=== PATIENT | female | born 1990 | race Caucasian/White ===

== ENCOUNTER 2019-11-07 16:48 | Outpatient (CLI) | payer OTHER, SELFPAY ==
[2019-11-07 16:59] VITALS: BP 138/85; PULSE 74
[2019-11-07 17:00] VITALS: BP 160/86; PULSE 79
[2019-11-07 17:15] VITALS: BP 146/99; PULSE 83
[2019-11-07 17:26] LABS: Basophils Absolute Auto 0.1 K/mm3 (0.0-0.1); Basophils Percent Auto 0.4 % (0.2-1.2); Eosinophils Absolute Auto 0.3 K/mm3 (0-0.3); Eosinophils Percent Auto 2.8 % (0-4.4); Hematocrit 38.4 % (37.0-47.0); Hemoglobin 12.9 g/dL (12.0-15.0); Immature Granulocyte Absolute 0.04 K/mm3 (0.00-0.031); Immature Granulocyte Percent A 0.3 % (0-0.5); Lymphocytes Absolute Auto 2.22 K/mm3 (0.9-3.2); Mean Corpuscular HGB Conc 33.6 g/dl (32-36); Mean Corpuscular Hemoglobin 28.8 pg (26-34); Mean Corpuscular Volume 85.7 fl (80-100); Monocytes Absolute Auto 0.7 K/mm3 (0.1-0.6); Monocytes Percent Auto 6.2 % (2.6-8.5); Neutrophils Absolute Auto 8.3 K/mm3 (1.3-6.7); Neutrophils Percent Auto 71.3 % (45.5-73.1); Platelet Count Result 254 k/mm3 (150-375); Red Blood Count 4.48 M/mm3 (4.2-5.4); Red Cell Distribution Width 12.3 % (11.5-14.5); White Blood Count 11.7 K/mm3 (4.5-10.0)
[2019-11-07 17:30] VITALS: BP 128/77; PULSE 69
[2019-11-07 17:38] LABS: Alanine Aminotransferase 11 U/L (4-35); Albumin Level 3.8 g/dL (3.5-5.1); Alkaline Phosphatase 74 U/L (38-126); Aspartate Amino Transferase 16 U/L (14-36); Bilirubin,Total 0.3 mg/dL (0.2-1.3); Blood Urea Nitrogen 5 mg/dL (7-17); Calcium 8.9 mg/dL (8.4-10.2); Carbon Dioxide 22 mmol/L (22-30); Chloride 106 mmol/L (98-107); Estimated Glomerular Filt Rate > 60; Glucose 80 mg/dL (65-105); Potassium 3.6 mmol/L (3.4-5.0); Sodium 136 mmol/L (137-145); Uric Acid 3.5 mg/dL (2.5-7.5)
[2019-11-07 17:45] VITALS: BP 124/76; PULSE 71
== END 2019-11-07 17:52 | disposition home or self-care (01) ==
LOC: ANHOBOP 16:53 → ANHOBPP 17:26
PROVIDERS: PCP Family Medicine; Visit Provider Student in an Organized Health Care Education/Training Program
DX: O13.9 Gestational [pregnancy-induced] hypertension without significant proteinuria, unspecified trimester (principal); Z3A.00 Weeks of gestation of pregnancy not specified
CPT/HCPCS: 36415; 80053; 84550; 85025; 99199

== ENCOUNTER 2020-04-11 00:01 | Inpatient (IN) | payer OTHER, SELFPAY ==
[2020-04-11] VITALS (86 sets, daily range): BP systolic 57–168; BP diastolic 21–112; PULSE 64–102; TEMP 36–36.7; BMI 41.5
--- NOTE | 2020-04-11 00:28 | LDADM ---
This patient, Clara Daigle, was admitted to Labor/Delivery/Recovery 108 on 04/10/20 at 00:01. Plans for labor, pain management and were discussed with patient. Patient/family oriented to hospital policies and general routines including ID bracelet, bed and alarms, visiting hours, pain management, procedures, bathroom and other care routines, personal items, smoking policy, room service/diet and guest tray routines, security routines, and visiting hours. Patient/Family are encouraged to report perceived risks to care and to ask questions if they do not understand what they are told or what they should do. See OBIX for further documentation.
[2020-04-11 00:45] LABS: Basophils Absolute Auto 0.1 K/mm3 (0.0-0.1); Basophils Percent Auto 0.4 % (0.2-1.2); Eosinophils Absolute Auto 0.2 K/mm3 (0-0.3); Eosinophils Percent Auto 1.5 % (0-4.4); Hematocrit 38.7 % (37.0-47.0); Hemoglobin 12.9 g/dL (12.0-15.0); Immature Granulocyte Absolute 0.06 K/mm3 (0.00-0.031); Immature Granulocyte Percent A 0.5 % (0-0.5); Lymphocytes Absolute Auto 2.39 K/mm3 (0.9-3.2); Lymphocytes Percent Auto 18.8 % (18.3-44.2); Mean Corpuscular HGB Conc 33.3 g/dl (32-36); Mean Corpuscular Hemoglobin 28.5 pg (26-34); Mean Corpuscular Volume 85.4 fl (80-100); Mean Platelet Volume 10.7 fl (7.4-10.4); Monocytes Absolute Auto 0.9 K/mm3 (0.1-0.6); Monocytes Percent Auto 7.4 % (2.6-8.5); Neutrophils Absolute Auto 9.1 K/mm3 (1.3-6.7); Neutrophils Percent Auto 71.4 % (45.5-73.1); Platelet Count Result 243 k/mm3 (150-375); Red Blood Count 4.53 M/mm3 (4.2-5.4); Red Cell Distribution Width 13.7 % (11.5-14.5); White Blood Count 12.7 K/mm3 (4.5-10.0)
[2020-04-11] MEDS: miSOPROStol 25 MCG TABLET VAGINAL ×3 (01:02→09:18)
--- NOTE | 2020-04-11 07:23 | WPDHPUPDATE1 ---
History and Physical Update Update Date/Time: 04/11/20 07:23 29 yo at 39w0d who presents for IOL. has been complicated by CHTN on labetalol. She deneis any preeclamptic symptoms. She endorses good fm. She denies regular ctx or leakage of fluid. History and Physical has been reviewed, including an updated exam of the patient. There are NO changes in the patient's condition. Risks, benefits, and alternatives have been discussed and questions answered. Patient agrees to proceed with procedure. A/P 29 yo at 39w0d who presents for IOL admit to [facility] admission orders T cat 1 no ctx on toco plan for cervical ripening via cytotec will augment with pitocin s/p cytotec continuous FM continue to monitor BP
[2020-04-11 07:39] LABS: Rapid Plasma Reagin Non-Reactive (NonReactive)
--- NOTE | 2020-04-11 07:53 | WPDANESEPP ---
Anes - Eval Pre Procedure Procedure: labor epidural Date/Time: 04/11/20 07:53 Preop Diagnosis: pain with labor Pre Op Diagnosis: IOL Patient Data Age: 29 Gender: F Height: 5 ft 3 in Weight: 106.5 kg Last Vital Signs Temp 36.0 C L 04/11/20 07:30 Pulse 72 04/11/20 07:45 BP 121/67 04/11/20 07:45 Allergies Allergy/AdvReac Type Severity Reaction Status Date / Time No Known Allergies Allergy Verified 07/15/19 09:58 Home Medications Medication Instructions Recorded Confirmed Type PNV cmb#95-ferrous fumarate-FA 1 tablet PO DAILY 03/19/20 04/11/20 History [] ergocalciferol (vitamin D2) 1,250 mcg PO WEEKLY 03/19/20 04/11/20 History labetalol 200 mg PO Q12H 03/19/20 04/11/20 History Laboratory Tests 04/11/20 04/11/20 04/11/20 00:25 00:25 00:25 WBC 12.7 K/mm3 H K/mm3 (4.5-10.0) RBC 4.53 M/mm3 M/mm3 (4.2-5.4) Hgb 12.9 g/dL g/dL (12.0-15.0) Hct 38.7 % % (37.0-47.0) MCV 85.4 fl fl (80-100) MCH 28.5 pg pg (26-34) MCHC 33.3 g/dl g/dl (32-36) RDW 13.7 % % (11.5-14.5) Plt Count 243 k/mm3 k/mm3 (150-375) MPV 10.7 fl H fl (7.4-10.4) Immature Gran % (Auto) 0.5 % % (0-0.5) Neut % (Auto) 71.4 % % (45.5-73.1) Lymph % (Auto) 18.8 % % (18.3-44.2) [place] % (Auto) 7.4 % % (2.6-8.5) Eos % (Auto) 1.5 % % (0-4.4) Baso % (Auto) 0.4 % % (0.2-1.2) Lymph # (Auto) 2.39 K/mm3 K/mm3 (0.9-3.2) [place] # (Auto) 0.9 K/mm3 H K/mm3 (0.1-0.6) Eos # (Auto) 0.2 K/mm3 K/mm3 (0-0.3) Baso # (Auto) 0.1 K/mm3 K/mm3 (0.0-0.1) Abs Immat Gran (auto) 0.06 K/mm3 H K/mm3 (0.00-0.031) Absolute Neuts (auto) 9.1 K/mm3 H K/mm3 (1.3-6.7) Absolute Nucleated RBC 0.0 K/mm3 K/mm3 (0.0-0.012) Nucleated RBC % 0.0 % % (0.0-0.2) RPR Non-reactive (NonReactive) Blood Type A Positive Antibody Screen Negative Patient hx anesthesia problems: none Family hx anesthesia problems: none PMFSH Social History Social History Smoking status: Never smoker Second hand tobacco smoke exposure: No Alcohol intake: current Substance use: never Gender identity (if verbalized by the patient): Female Spiritual care concerns: No Exam Day of Procedure 04/11/20 07:53
[2020-04-11] MEDS: LABETALOL HCL 100 MG TABLET 200 MG PO ×2 (09:50→21:03)
[2020-04-11] MEDS: OXYTOCIN 30 UNITS/NS 500 ML 30 UNITS/500 ML BAG 6 UNITS IV CONT (13:49)
[2020-04-11] MEDS: LACTATED RINGERS 1,000 ML 125 ML IV CONT (13:49)
--- NOTE | 2020-04-11 15:00 | PM.OBPNLAB ---
Pain Control Date/time seen: 04/11/20 15:00 Pain control: tolerating well Pelvic Exam Dilation (cm): 1 Effacement (%): 50 station: -3 Amniotic membrane status: Intact Contractions Contraction frequency: 145 Status status: Category l Assessment and Plan Pitocin rate (mU/min): 14 Assessment: induction ongoing Plan: continuous present management
[2020-04-11] MEDS: DINOPROSTONE 10 MG VAG INSERT VAGINAL (20:18)
[2020-04-12] VITALS (176 sets, daily range): BP systolic 105–196; BP diastolic 46–180; PULSE 75–145; RESP 18; TEMP 36.3–38.1; O2SAT 87–100
[2020-04-12] MEDS: LACTATED RINGERS 1,000 ML 125 ML IV CONT ×2 (05:36→14:25)
[2020-04-12] MEDS: OXYTOCIN 30 UNITS/NS 500 ML 30 UNITS/500 ML BAG 6 UNITS IV CONT (05:37)
--- NOTE | 2020-04-12 05:47 | PM.OBPNVD ---
OB - PN: Subj Subjective Date/time seen: 04/12/20 05:47 Interval history: cx3/75/-1 arom light mec fhts ok gwet epidural OB - PN: Obj Data Labs CBC & Chem 7: 04/11/20 00:25 Labs: Laboratory Results - last 24 hr 04/11/20 00:25 RPR Non-reactive OB - PN A/P Time Spent With Patient Time: Total time spent is greater than 50% in coordination of care (as documented) at patient's floor/unit and/or counseling patient:
[2020-04-12] MEDS: LABETALOL HCL 100 MG TABLET 200 MG PO (09:24)
[2020-04-12] MEDS: ONDANSETRON INJ 4 MG/2 ML VIAL IV PUSH (11:38)
[2020-04-12] MEDS: SODIUM CHLORIDE 0.9% IV 300 ML 180 ML I-UTERINE (11:45)
--- NOTE | 2020-04-12 11:46 | PM.OBPNVD ---
OB - PN: Subj Subjective Date/time seen: 04/12/20 11:46 Interval history: cx 6.5 by rn exam variables seen./iupc and amnioinfusion started epidural working OB - PN: Obj Data Labs CBC & Chem 7: 04/11/20 00:25 OB - PN A/P Time Spent With Patient Time: Total time spent is greater than 50% in coordination of care (as documented) at patient's floor/unit and/or counseling patient:
[2020-04-12] MEDS: SODIUM CHLORIDE 0.9% IV 1,000 ML 150 ML I-UTERINE (12:10)
[2020-04-12] MEDS: AMPICILLIN 2 GM/NS 100 ML 2 GM/100 ML BAG IVPB (14:58)
--- NOTE | 2020-04-12 16:22 | PM.OBPRVD ---
OB - Delivery Note Procedure Delivery date: 04/12/20 Procedure: mil/ Intrapartal events: None Induction method: per misoprostol protocol Delivery augmentation: pitocin Delivery monitor: external FHT Route of delivery: Episiotomy description: None Laceration description: None Specimen: No Estimated blood loss (mL): 57 Anesthesia type: Epidural Disposition: floor [facility] Date of : 04/12/20 Time of : 16:07 Weeks of gestation at delivery: 39 gender: Male Weight (pounds): 7 Weight (ounces): 4 presentation: vertex position: Right Occiput Anterior Placenta delivery description: Spontaneous cord vessel description: 3 Vessels, Nuchal Cord, True Knot and Around Body x1 score one minute: 8 score five minutes: 9
[2020-04-12] MEDS: OXYTOCIN 30 UNITS/NS 500 ML 30 UNITS/500 ML BAG 125 UNITS IV CONT (17:13)
--- NOTE | 2020-04-12 22:15 | OBPPTRN ---
Patient transferred to post room # 281 via wheelchair on 04/12/20 at 1933. Support person present. Oriented to unit, room, information board, rooming in, admission packet and security measures. remains in level 2 nursery at this time. Patient verbalizes understanding.
[2020-04-12] MEDS: IBUPROFEN 600 MG TABLET PO (23:04)
[2020-04-12] MEDS: BENZOCAINE 20% AER SPR (*SP) 56 GM CAN 1 SPRAY TOPICAL (23:04)
[2020-04-12] MEDS: ACETAMINOPHEN 325 MG TABLET 650 MG PO (23:05)
[2020-04-13 05:10] LABS: Hematocrit 35.3 % (37.0-47.0); Hemoglobin 11.7 g/dL (12.0-15.0)
--- NOTE | 2020-04-13 07:07 | P.PNOB_ITS ---
OB - PN: Subj Subjective Date/time seen: 04/13/20 07:07 Interval history: cx 6.5 by rn exam variables seen./iupc and amnioinfusion started epidural working Patient comments: no complaints and pain well controlled baby status: doing well and nursing well OB - PN: Obj Data Labs CBC & Chem 7: 04/13/20 04:41 Labs: Laboratory Results - last 24 hr 04/13/20 04:41 Hgb 11.7 L Hct 35.3 L OB - PN A/P Plan day: 1 Plan: routine care Time Spent With Patient Time: Total time spent is greater than 50% in coordination of care (as docum ented) at patient's floor/unit and/or counseling patient: Time with patient: less than 15 minutes Review of Systems Review of Systems: All systems reviewed & are unremarkable except as noted in HPI and below Exam Const: General: no acute distress Eyes: General: appearance normal, both eyes and all related structures Neck: Neck: supple and no JVD Thyroid: thyroid normal Resp: Effort & Inspection: normal respiratory effort Auscultation: clear to auscultation bilaterally Cardio: Rate: regular rate Rhythm: regular rhythm GI: Inspection: non-distended GI Palp: Yes Soft to palpation, No Tenderness to palpation present (GI) and No Guarding due to palpation present (GI) Auscultation: normal bowel sounds : General: Yes bladder normal to palpation External Female Exam: normal external appearance Speculum Exam - Vagina: normal vaginal discharge and No vaginal bleeding Speculum Exam - Cervix: nontender Bimanual exam- vagina & uterus: bladder normal to palpation and No Cervical tenderness present OB/external & speculum: No vaginal bleeding Skin: General skin exam: no rashes or lesions noted Extrem: General: normal to inspection and no edema Psych: Mental Status: mental status grossly normal Affect: normal affect
[2020-04-13 08:15] VITALS: BP 134/80; PULSE 81; RESP 18; TEMP 36
[2020-04-13] MEDS: MULTIVIT/MIN/PREN/FOL AC/IRON TABLET 1 TAB PO (09:01)
[2020-04-13] MEDS: IBUPROFEN 600 MG TABLET PO ×2 (09:01→17:21)
--- NOTE | 2020-04-13 09:09 | WPDANLDPN2 ---
Anes-Prog Note L&D Date/Time: 04/13/20 09:09 Comfortable throughout: labor and delivery Neuraxial method: epidural Neuro status: Neuro function grossly intact. Cardiovascular status: normal Respiratory status: normal Airway patency: baseline Mental status: baseline Post-Op hydration status: normal Vital Signs: Last Vital Signs Temp 36.3 C L 04/12/20 20:00 Pulse 95 04/12/20 21:30 Resp 18 04/12/20 21:30 BP 138/87 04/12/20 21:30 Pulse Ox 99 04/12/20 21:30 I/O: Intake & Output 04/12/20 04/13/20 04/13/20 23:59 07:59 15:59 Intake Total 500 Balance 500 Post-procedural complaints: none Patient feedback: Patient satisfied with anesthetic care.
--- NOTE | 2020-04-13 11:10 | PC.NURSE ---
Mother called out for assist with feeding. Consulted with patient, mother reports she has some tenderness with feedings and needs assist with positioning to latch. Reviewed feeding cues, frequencies, duration of feedings, feeding elimination flow sheet, and signs of adequate intake. Demonstrated stimulation techniques to wake infant for feeding. Assisted with infant to breast. Reviewed positioning/alignment in cross cradle, holding breast in U hold and guided asymmetrical latch on. Discussed rational for each. After several attempts, was able to latch correctly. Infant does not want to open widely for deep latch. Infant nursed eagerly, with steady draws and frequent swallowing noted. Reviewed signs of a correct latch, effective nursing and suck swallow ratio. Infant was able to maintain latch without discomfort to mother. Reviewed signs of a correct latch, effective nursing and suck swallow ratio. Nipple care reviewed. Instructed mother to call out for RN assistance if she is unable to latch infant for feeding or she has discomfort with nursing. Instructed feeding should be initiated three hours from start of last feeding or if feeding cues are noted before. Mother voiced understanding of information shared. Advised to stimulate to keep infant awake and nursing effectively for increased intake and assist with maintaining deep latch. Demonstrated how to adjust latch more deeply while feeding. Instructed mother to call out for RN assistance if she is unable to latch for feeding or she has discomfort with nursing. Instructed feeding should be initiated three hours from start of last feeding or if feeding cues are noted before. Mother voiced understanding of information shared. Mother is feeding as required and waking to feed if needed. is currently meeting outcomes for weight, output, jaundice and feeding frequencies. Mother states she feels confident to continue effective at home. Reviewed transition to breast milk, signs of adequate intake, and engorgement/relief. Instructed to call ICP if intake/output less than required. Reviewed regular medications mother is taking. Information provided per Page. Reviewed community resources on the [email or web address] website and in the Mom/Baby guide. Information on outpatient services provided. Mother has no further questions at this time.
[2020-04-13] MEDS: ACETAMINOPHEN 325 MG TABLET 650 MG PO (17:20)
[2020-04-13 20:00] VITALS: BP 132/72; PULSE 77; RESP 18; TEMP 36.7; O2SAT 98
--- NOTE | 2020-04-14 07:29 | PM.DS ---
DS: Admitting Diagnosis Admitting Diagnosis Admitting Diagnosis: IOL DS: Summary Time Spent with Patient Time attestation: Total time spent providing and/or coordinating discharge services: Exam Const: General: no acute distress Eyes: General: appearance normal, both eyes and all related structures Neck: Neck: supple and no JVD Thyroid: thyroid normal Resp: Effort & Inspection: normal respiratory effort Auscultation: clear to auscultation bilaterally Cardio: Rate: regular rate Rhythm: regular rhythm GI: Inspection: non-distended GI Palp: Yes Soft to palpation, No Tenderness to palpation present (GI) and No Guarding due to palpation present (GI) Auscultation: normal bowel sounds : General: Yes bladder normal to palpation External Female Exam: normal external appearance Speculum Exam - Vagina: normal vaginal discharge and No vaginal bleeding Speculum Exam - Cervix: nontender Bimanual exam- vagina & uterus: bladder normal to palpation and No Cervical tenderness present OB/external & speculum: No vaginal bleeding Skin: General skin exam: no rashes or lesions noted Extrem: General: normal to inspection and no edema Psych: Mental Status: mental status grossly normal Affect: normal affect DS: Data Data Completed and Pending Pending studies at discharge: Pending at discharge 04/12/20 16:14 Surgical [PTH] Routine Discharge Plan Discharge Attending physician on discharge: Asad Rowland Discharging Clinician: Edwin Jiang Patient Disposition: Home, Self-Care Activity: may shower, no straining and pelvic rest Diet: heart healthy Patient Instructions: Antibiotic Form Stand Alone Forms: General Discharge Information Follow-up/Referrals: Asad Rowland MD [Physician] - Discharge Medications: Continued ergocalciferol (vitamin D2) 1,250 mcg (50,000 unit) capsule 1,250 mcg PO WEEKLY RF: 0 labetalol 200 mg Tablet 200 mg PO Q12H RF: 0 PNV cmb#95-ferrous fumarate-FA [] 28 mg iron- 800 mcg Tablet 1 tablet PO DAILY RF: 0 Date of admission: 04/11/20 00:01 Primary Care Provider: Tatyana Jacobsen Admitting Provider: Asad Rowland Attending physician on admission: Asad Rowland
--- NOTE | 2020-04-14 07:30 | PM.OBPNVD ---
OB - PN: Subj Subjective Date/time seen: 04/14/20 07:30 Interval history: cx 6.5 by rn exam variables seen./iupc and amnioinfusion started epidural working Patient comments: no complaints and pain well controlled baby status: doing well and nursing well OB - PN: Obj Data Labs CBC & Chem 7: 04/13/20 04:41 OB - PN A/P Time Spent With Patient Time: Total time spent is greater than 50% in coordination of care (as documented) at patient's floor/unit and/or counseling patient: Review of Systems Review of Systems: All systems reviewed & are unremarkable except as noted in HPI and below Exam Const: General: no acute distress Eyes: General: appearance normal, both eyes and all related structures Neck: Neck: supple and no JVD Thyroid: thyroid normal Resp: Effort & Inspection: normal respiratory effort Auscultation: clear to auscultation bilaterally Cardio: Rate: regular rate Rhythm: regular rhythm GI: Inspection: non-distended GI Palp: Yes Soft to palpation, No Tenderness to palpation present (GI) and No Guarding due to palpation present (GI) Auscultation: normal bowel sounds : General: Yes bladder normal to palpation External Female Exam: normal external appearance Speculum Exam - Vagina: normal vaginal discharge and No vaginal bleeding Speculum Exam - Cervix: nontender Bimanual exam- vagina & uterus: bladder normal to palpation and No Cervical tenderness present OB/external & speculum: No vaginal bleeding Skin: General skin exam: no rashes or lesions noted Extrem: General: normal to inspection and no edema Psych: Mental Status: mental status grossly normal Affect: normal affect
[2020-04-14 09:45] VITALS: BP 134/84; PULSE 86; RESP 18; TEMP 36.4; O2SAT 97
[2020-04-14] MEDS: DOCUSATE SODIUM 100 MG CAPSULE PO (09:46)
[2020-04-14] MEDS: IBUPROFEN 600 MG TABLET PO (09:46)
[2020-04-14] MEDS: MULTIVIT/MIN/PREN/FOL AC/IRON TABLET 1 TAB PO (09:46)
--- NOTE | 2020-04-14 14:27 | PC.NURSE ---
1300 Parents were given the discharge papers for mother and baby and they state they have read through them. questions addressed. Mother signed discharge papers stating understanding for herself and her baby.
[2020-04-16 09:20] VITALS: BP 144/83; PULSE 70; RESP 20; TEMP 36.7; O2SAT 100
== END 2020-04-14 13:39 | disposition home or self-care (01) | DRG 806 ==
LOC: ANHLDR 19:01 → ANHOB2 04-14 07:30 → ANHLDR 04-16 11:51 → ANHOB2 04-16 11:51
PROVIDERS: Admitting Provider Student in an Organized Health Care Education/Training Program; PCP Family Medicine; Visit Provider Obstetrics & Gynecology
DX: O10.92 Unspecified pre-existing hypertension complicating childbirth (principal); O75.2 Pyrexia during labor, not elsewhere classified; Z37.0 Single live birth; Z3A.39 39 weeks gestation of pregnancy; O36.8330 Maternal care for abnormalities of the fetal heart rate or rhythm, third trimester, not applicable or unspecified; O77.0 Labor and delivery complicated by meconium in amniotic fluid; O69.2XX0 Labor and delivery complicated by other cord entanglement, with compression, not applicable or unspecified
CPT/HCPCS: 36415; 85014; 85018; 85025; 86592; 86850; 86900; 86901; 88307; A9270; J0131; J0290; J2405; J2590; J2795; J3010; J7030; J7120

== ENCOUNTER 2020-08-07 11:37 | Outpatient (CLI) | payer OTHER, SELFPAY ==
--- NOTE | ~2020-08-07 | XR_ITS ---
XR lumbar spine 2-3V 08/07/2020 12:04 Indication: Low back pain with radiculopathy Procedure: 3 views lumbar spine Comparison: 06/23/2011 Findings: Normal lumbar alignment. Vertebral body heights are maintained. No significant disc narrowi ng. No fracture, subluxation or dislocation. Pedicles intact. Sacral foramen are symmetric. Impression: 1: No significant abnormality of the lumbar spine. Reviewed, dictated and finalized at location A. [facility] Impression: 1: No significant abnormality of the lumbar spine.
== END 2020-08-07 11:38 | disposition home or self-care (01) ==
LOC: ANHIMG 11:44
PROVIDERS: PCP Family Medicine; Visit Provider Physician Assistant
DX: M54.5 Low back pain (principal)
CPT/HCPCS: 72100

== ENCOUNTER 2022-11-21 11:17 | Emergency (ER) | payer OTHER, SELFPAY ==
--- NOTE | 2022-11-21 11:35 | ED.BACK ---
HPI - Back Pain/Injury General Chief Complaint: Back Pain/Injury Stated Complaint: spine pain Time Seen by Provider: 11/21/22 11:41 Source: patient, RN notes reviewed and old records reviewed Mode of arrival: ambulatory Limitations: no limitations History of Present Illness HPI Narrative: 32-year-old female presents to the [facility] with complaints of upper back pain. Patient states the pain is worse with movement. Worse when swallowing. Patient denies any injury. Unable to reproduce pain. No numbness or tingling in extremities. Walks with a normal gait. No saddle anesthesia. No loss retention of bowel or bladder. Has a history of fibromyalgia Related Data Allergies Allergy/AdvReac Type Severity Reaction Status Date / Time No Known Allergies Allergy Verified 11/21/22 11:34 Review of Systems Review of Systems: All systems reviewed & are unremarkable except as noted in HPI and below Constitutional: Constitutional: Reports no additional constitutional complaints Eyes: Eyes: Reports no additional eye complaints ENT: Reports system reviewed and no additional complaints, except as documented Cardiovascular: Cardiovascular: Reports no additional cardiovascular complaints, Denies chest pain and Denies dyspnea Respiratory: Respiratory: Reports no additional respiratory complaints, Denies chest congestion, Denies cough and Denies dyspnea Gastrointestinal: Gastrointestinal: Reports no additional gastrointestinal complaints, Denies abdominal pain, Denies nausea and Denies vomiting Musculoskeletal: Musculoskeletal: Reports as per HPI and Reports back pain Integumentary/Breasts: Skin/Breast: Reports system reviewed and no additional complaints, except as docu Neurologic: Reports system reviewed and no additional complaints, except as documented Psychiatric: Psychiatric: Reports no additional psychiatric complaints Allergic/Immunologic: Allergic/Immunologic: Reports no additional allergic/immunologic complaints [facility] Past Medical History Medical History Bicornate uterus Fibromyalgia Migraine Migraine NOS/intractable Sprain of unspecified site of sacroiliac region Family History Family History Grandparent Family history of malignant neoplasm of breast Social History Social History Smoking status: Never smoker Second hand tobacco smoke exposure: No Alcohol intake: current Substance use: never Gender identity (if verbalized by the patient): Female Spiritual care concerns: No Comments At the time of my signature, I reviewed and agree with the nursing past medical, surgical, social, and family history. There is no relevant family history pertinent to the patient complaint. Exam Const: General: cooperative, healthy appearing, comfortable, no acute distress, well developed, alert and well nourished Nutritional Appearance: well nourished and obese Orientation/consciousness: patient oriented x3 Limitations: no limitations HENMT: Head: normal to inspection Ears: hearing grossly normal bilaterally and external ears normal Face/Nose/Sinus: Normal external nose present, Normal nares present, Normal nasal mucous membranes and turbinates present and normal facial exam Face and sinus: normal facial exam Mouth: Yes Normal oral and palatal mucosa present, Yes lip normal and Yes moist mucous membranes Throat: posterior oropharynx normal and uvula midline Eyes: General: appearance normal, both eyes and all related structures Alignment and Position: alignment normal Periorbital: periorbital findings normal Conjunctivae: conjunctivae normal Pupils: Equal, round and reactive pupils present EOM: EOMs intact bilaterally Neck: Neck: normal visual inspection, full ROM, no lymphadenopathy and no meningeal signs Chest: Chest palpation & inspection: normal ins
[2022-11-21 11:43] VITALS: BP 150/114; PULSE 66; RESP 16; TEMP 37.1; O2SAT 99
== END 2022-11-21 11:58 | disposition home or self-care (01) ==
PROVIDERS: Emergency Provider Nurse Practitioner; PCP Family Medicine
DX: M54.6 Pain in thoracic spine (principal); M79.7 Fibromyalgia
CPT/HCPCS: 99213; G0463

== ENCOUNTER 2023-07-23 10:01 | Outpatient (CLI) | payer OTHER, SELFPAY ==
[2023-07-23 15:00] LABS: Basophils Absolute Auto 0.1 K/mm3 (0.0-0.1); Basophils Percent Auto 0.7 % (0.2-1.2); Eosinophils Absolute Auto 0.2 K/mm3 (0-0.3); Eosinophils Percent Auto 1.9 % (0-4.4); Hematocrit 45.1 % (37.0-47.0); Hemoglobin 14.3 g/dL (12.0-15.0); Immature Granulocyte Absolute 0.03 K/mm3 (0.00-0.031); Immature Granulocyte Percent A 0.4 % (0-0.5); Lymphocytes Absolute Auto 2.01 K/mm3 (0.9-3.2); Mean Corpuscular HGB Conc 31.7 g/dl (32-36); Mean Corpuscular Hemoglobin 28.5 pg (26-34); Mean Corpuscular Volume 89.8 fl (80-100); Monocytes Absolute Auto 0.5 K/mm3 (0.1-0.6); Monocytes Percent Auto 6.6 % (2.6-8.5); Neutrophils Absolute Auto 5.3 K/mm3 (1.3-6.7); Neutrophils Percent Auto 65.4 % (45.5-73.1); Platelet Count Result 308 k/mm3 (150-375); Red Blood Count 5.02 M/mm3 (4.2-5.4); Red Cell Distribution Width 13.2 % (11.5-14.5); White Blood Count 8.1 K/mm3 (4.5-10.0)
[2023-07-23 15:12] LABS: Alanine Aminotransferase 21 U/L (6-35); Albumin Level 4.4 g/dL (3.5-5.1); Alkaline Phosphatase 80 U/L (38-126); Anion Gap 10 mmol/L (8-16); Aspartate Amino Transferase 56 U/L (14-36); Bilirubin,Total 0.8 mg/dL (0.2-1.3); Blood Urea Nitrogen 12 mg/dL (7-17); Calcium 9.8 mg/dL (8.4-10.2); Carbon Dioxide 28 mmol/L (22-30); Chloride 104 mmol/L (98-107); Cholesterol 178 mg/dL (0-200); Estimated Glomerular Filt Rate > 60; Glucose 74 mg/dL (65-110); HDL Direct 60 mg/dL; Potassium 3.5 mmol/L (3.4-5.0); Sodium 142 mmol/L (137-145); Triglycerides 54 mg/dL (<150)
[2023-07-23 15:23] LABS: LDL Cholesterol Direct 90 mg/dL
[2023-07-23 15:31] LABS: Rheumatoid Factor < 12.0 IU/ML (<12)
[2023-07-23 16:12] LABS: Erythrocyte Sedimentation Rate 8 mm/hr (0-20)
[2023-07-27 20:05] LABS: ANA Cascade Screen Negative (Negative)
== END 2023-07-23 10:02 | disposition home or self-care (01) ==
LOC: ANHGOSHLAB 10:02
PROVIDERS: PCP Family Medicine; Visit Provider Family Medicine
DX: M79.7 Fibromyalgia (principal); R07.89 Other chest pain
CPT/HCPCS: 36415; 80053; 80061; 84443; 85025; 85652; 86038; 86225; 86235; 86364; 86430

== ENCOUNTER 2023-09-02 15:26 | Outpatient (CLI) | payer OTHER, SELFPAY ==
--- NOTE | ~2023-09-02 | US_ITS ---
CORRECTED REPORT corrected examination title JMG 09/04/23 This report was recreated on 09/04/23. Original report was [facility] EXAMINATION: US OB <= 14 weeks fetus w TV DATE: 09/02/2023 17:00 INDICATION: Spotting. TECHNIQUE: Real-time transabdominal and transvaginal pelvic ultrasound was performed. COMPARISON: None. FINDINGS: TRANSABDOMINAL ULTRASOUND: The uterus measures 11.0 x 5.8 x 0.6 cm. The uterus is septate. TRANSVAGINAL ULTRASOUND: There is an intrauterine gestational sac in the right uterine horn. A yolk sac is identified. The crown rump length measures 6 mm, which correlates with an estimated gestational age of 6 weeks and 2 day(s) (+/-) 4 day(s). heart motion is identified measuring 112 beats per minute (bpm) by M-mode Doppler. The ovaries are not visualized. There is no free fluid in the pelvis. IMPRESSION: 1. Single living intrauterine gestation with estimated date of delivery of 04/25/2024. 2. Septate uterus. Reviewed, dictated and finalized at location A. [facility] IMPRESSION: 1. Single living intrauterine gestation with estimated date of delivery of 04/25. 2. Septate uterus.
== END 2023-09-02 15:27 | disposition home or self-care (01) ==
PROVIDERS: PCP Family Medicine; Visit Provider Obstetrics & Gynecology
DX: O26.859 Spotting complicating pregnancy, unspecified trimester (principal); Z3A.00 Weeks of gestation of pregnancy not specified
CPT/HCPCS: 76801; 76817

== ENCOUNTER 2023-09-23 15:57 | Outpatient (CLI) | payer OTHER, SELFPAY ==
[2023-09-23 19:32] LABS: Erythrocyte Sedimentation Rate 6 mm/hr (0-20)
[2023-09-23 20:12] LABS: Alanine Aminotransferase 17 U/L (6-35); Albumin Level 4.4 g/dL (3.5-5.1); Alkaline Phosphatase 63 U/L (38-126); Aspartate Amino Transferase 36 U/L (14-36); Bilirubin,Total 0.4 mg/dL (0.2-1.3)
== END 2023-09-23 15:58 | disposition home or self-care (01) ==
LOC: ANHGOSHLAB 16:00
PROVIDERS: PCP Family Medicine; Visit Provider Family Medicine
DX: R07.89 Other chest pain (principal)
CPT/HCPCS: 36415; 80076; 85652

== ENCOUNTER 2024-04-14 06:30 | Inpatient (IN) | payer OTHER, SELFPAY ==
[2024-04-14] VITALS (103 sets, daily range): BP systolic 88–190; BP diastolic 49–123; PULSE 58–147; RESP 14–20; TEMP 36.5–37.2; O2SAT 92–100; BMI 40.2
--- NOTE | 2024-04-14 06:30 | LDADM ---
This patient, Clara Daigle, was admitted to Labor/Delivery/Recovery 108 on 04/14/24 at 06:30. Plans for labor, pain management and were discussed with patient. Patient/family oriented to hospital policies and general routines including ID bracelet, bed and alarms, visiting hours, pain management, procedures, bathroom and other care routines, personal items, smoking policy, room service/diet and guest tray routines, infant security routines, and visiting hours. Patient/Family are encouraged to report perceived risks to care and to ask questions if they do not understand what they are told or what they should do. See OBIX for further documentation.
--- NOTE | 2024-04-14 06:33 | PM.IMHP ---
H&P: HPI History of Present Illness Date/Time: 04/14/24 06:33 Chief Complaint: Worsening chronic hypertension Narrative: 33-year-old 2 para 1 chronic hypertension on labetalol whose blood pressures were worsening. Her last menstrual period was 07/16/2023 with an EDC of 04/21/2024 putting her at 39 weeks gestation. She is negative for group B strep. PH labs were drawn PMFSH Past Medical History Medical History Bicornate uterus Fibromyalgia History of COVID-19 Migraine Migraine NOS/intractable Sprain of unspecified site of sacroiliac region Family History Family History Grandparent Family history of malignant neoplasm of breast Social History Social History Smoking status: Never smoker Second hand tobacco smoke exposure: No Alcohol intake: current Substance use: never Gender identity (if verbalized by the patient): Female Spiritual care concerns: No Meds Home Medications and Allergies Home Medications Medication Instructions Recorded Confirmed Type labetalol 100 mg tablet 100 mg PO Q12H #180 tabs 01/21/24 03/22/24 Rx buspirone 5 mg tablet 15 mg PO BID 03/22/24 03/22/24 History vits no.126-ferrous fum 1 tablet PO DAILY 03/22/24 03/22/24 History 28 mg iron-folic acid 800 mcg tablet (Classic ) Allergies Allergy/AdvReac Type Severity Reaction Status Date / Time nifedipine AdvReac Severe headache Verified 03/22/24 11:59 Exam Const: General: cooperative, healthy appearing and comfortable Nutritional Appearance: average body habitus Orientation/consciousness: oriented to person, oriented to place and oriented to time Resp: Effort & Inspection: normal respiratory effort Cardio: Rate: regular rate Rhythm: regular rhythm Heart sounds: S1 normal heart sound present and S2 normal heart sound present GI: Inspection: normal to inspection ( gravid soft uterus) : Speculum Exam - Cervix: normal appearance of the cervix and Other cervical findings present ( heart tones reassuring) Assessment and Plan Assessment and plan (1) Term : Code(s): Z34.90 - Encounter for supervision of normal , unspecified, unspecified trimester Status: Acute (2) Chronic hypertension: Code(s): I10 - Essential (primary) hypertension Status: Acute Assessment and Plan: will check PIH labs. Artificial rupture membranes will be performed. Spontaneous vaginal delivery is expected
[2024-04-14 07:06] LABS: Basophils Percent Auto 0.4 % (0.2-1.2); Eosinophils Absolute Auto 0.2 K/mm3 (0-0.3); Eosinophils Percent Auto 2.1 % (0-4.4); Hematocrit 35.3 % (37.0-47.0); Hemoglobin 11.7 g/dL (12.0-15.0); Immature Granulocyte Absolute 0.04 K/mm3 (0.00-0.031); Immature Granulocyte Percent A 0.4 % (0-0.5); Lymphocytes Absolute Auto 1.76 K/mm3 (0.9-3.2); Lymphocytes Percent Auto 18.4 % (18.3-44.2); Mean Corpuscular HGB Conc 33.1 g/dl (32-36); Mean Corpuscular Hemoglobin 27.5 pg (26-34); Mean Corpuscular Volume 82.9 fl (80-100); Mean Platelet Volume 9.9 fl (7.4-10.4); Monocytes Absolute Auto 0.6 K/mm3 (0.1-0.6); Monocytes Percent Auto 5.7 % (2.6-8.5); Platelet Count Result 219 k/mm3 (150-375); Red Blood Count 4.26 M/mm3 (4.2-5.4); Red Cell Distribution Width 12.9 % (11.5-14.5); White Blood Count 9.6 K/mm3 (4.5-10.0)
[2024-04-14] MEDS: OXYTOCIN 30 UNITS/NS 500 ML 30 UNITS/500 ML BAG IV CONT (07:09)
[2024-04-14] MEDS: LACTATED RINGERS 1,000 ML 125 ML IV CONT ×3 (07:10→16:15)
[2024-04-14 07:23] LABS: Alanine Aminotransferase 10 U/L (6-35); Albumin Level 3.7 g/dL (3.5-5.1); Alkaline Phosphatase 153 U/L (38-126); Anion Gap 10 mmol/L (4-12); Aspartate Amino Transferase 21 U/L (14-36); Bilirubin,Total 0.6 mg/dL (0.2-1.3); Blood Urea Nitrogen 10 mg/dL (7-17); Carbon Dioxide 19 mmol/L (22-30); Chloride 105 mmol/L (98-107); Estimated Glomerular Filt Rate > 60; Glucose 110 mg/dL (65-110); Potassium 3.4 mmol/L (3.4-5.0); Sodium 134 mmol/L (137-145); Uric Acid 5.4 mg/dL (2.5-7.5)
[2024-04-14 07:57] LABS: Rapid Plasma Reagin Non-Reactive (NonReactive)
[2024-04-14 08:02] LABS: HIV 1/2 Ab P24 Ag Result Negative (Negative)
--- NOTE | 2024-04-14 12:10 | PM.OBPNLAB ---
Pain Control Date/time seen: 04/14/24 12:10 Pain control: tolerating well Pelvic Exam Dilation (cm): 3 Effacement (%): 50 station: -2 Amniotic membrane status: Leaking Contractions Monitor mode: Internal
[2024-04-14] MEDS: SODIUM CHLORIDE 0.9% IV 300 ML 600 ML I-UTERINE (12:17)
[2024-04-14] MEDS: fentaNYL CITRATE INJ (*CRX) 100 MCG/2 ML VIAL 50 MCG IV PUSH ×2 (12:23→14:59)
--- NOTE | 2024-04-14 13:53 | WPDANESEPP ---
Anes - Eval Pre Procedure Procedure: Labor Epidural Date/Time: 04/14/24 13:53 Surgeon: Aury Le Preop Diagnosis: Labor Pain Pre Op Diagnosis: IOL Patient Data Age: 33 Gender: F Height: 1.6 m Weight: 103 kg Last Vital Signs Temp 37.2 C 04/14/24 12:25 Pulse 78 04/14/24 13:45 BP 155/85 H 04/14/24 13:45 O2 Del Method Room Air 04/14/24 07:39 Allergies Allergy/AdvReac Type Severity Reaction Status Date / Time nifedipine AdvReac Severe headache Verified 03/22/24 11:59 Home Medications Medication Instructions Recorded Confirmed Type labetalol 100 mg tablet 100 mg PO Q12H #180 tabs 01/21/24 04/14/24 Rx buspirone 5 mg tablet 15 mg PO BID 03/22/24 04/14/24 History vits no.126-ferrous fum 1 tablet PO DAILY 03/22/24 04/14/24 History 28 mg iron-folic acid 800 mcg tablet (Classic ) Laboratory Tests 04/14/24 06:45 WBC 9.6 K/mm3 (4.5-10.0) RBC 4.26 M/mm3 (4.2-5.4) Hgb 11.7 L g/dL (12.0-15.0) Hct 35.3 L % (37.0-47.0) MCV 82.9 fl (80-100) MCH 27.5 pg (26-34) MCHC 33.1 g/dl (32-36) RDW 12.9 % (11.5-14.5) Plt Count 219 k/mm3 (150-375) MPV 9.9 fl (7.4-10.4) Immature Gran % (Auto) 0.4 % (0-0.5) Neut % (Auto) 73.0 % (45.5-73.1) Lymph % (Auto) 18.4 % (18.3-44.2) [place] % (Auto) 5.7 % (2.6-8.5) Eos % (Auto) 2.1 % (0-4.4) Baso % (Auto) 0.4 % (0.2-1.2) Lymph # (Auto) 1.76 K/mm3 (0.9-3.2) [place] # (Auto) 0.6 K/mm3 (0.1-0.6) Eos # (Auto) 0.2 K/mm3 (0-0.3) Baso # (Auto) 0.0 K/mm3 (0.0-0.1) Abs Immat Gran (auto) 0.04 H K/mm3 (0.00-0.031) Absolute Neuts (auto) 7.0 H K/mm3 (1.3-6.7) Absolute Nucleated RBC 0.000 K/mm3 (0.0-0.012) Nucleated RBC % 0.0 % (0.0-0.2) Sodium 134 L mmol/L (137-145) Potassium 3.4 mmol/L (3.4-5.0) Chloride 105 mmol/L (98-107) Carbon Dioxide 19 L mmol/L (22-30) Anion Gap 10 mmol/L (4-12) BUN 10 mg/dL (7-17) Creatinine 0.70 mg/dL (0.7-1.0) Estim Creat Clear Calc Not Reportable Estimated GFR > 60 (59 - ) Glucose 110 mg/dL (65-110) Uric Acid 5.4 mg/dL (2.5-7.5) Calcium 9.0 mg/dL (8.4-10.2) Total Bilirubin 0.6 mg/dL (0.2-1.3) AST 21 U/L (14-36) ALT 10 U/L (6-35) Alkaline Phosphatase 153 H U/L (38-126) Total Protein 7.0 g/dL (6.3-8.2) Albumin 3.7 g/dL (3.5-5.1) RPR Non-reactive (NonReactive) HIV 1&2 Ab/P24 Ag 4thGn Negative (Negative) Blood Type A Positive Antibody Screen Negative : gestational age (LORY 04/21/24, ) Patient hx anesthesia problems: none Family hx anesthesia problems: none Results Review: All pre-operative results and documents have been reviewed as part of the pre-operative evaluation. FORMERLY [facility] Past Medical History Medical History Bicornate uterus Fibromyalgia History of COVID-19 Migraine Migraine NOS/intractable Sprain of unspecified site of sacroiliac region Family History Family History Grandparent Family history of malignant neoplasm of breast Social History Social History Smoking status: Never smoker Second hand tobacco smoke exposure: No Alcohol intake: current Substance use: never Do You Feel Safe in your Home?: Yes Lack of Transportation: No Lack of Food: Never True Current Housing: I Have Housing Concerned About Future Housing: No Difficulty Paying Gas/Electric Bills: No Difficulty Paying for Meds: No Currently Unemployed: No Education: Master's Degree or Higher Difficulty w/ Childcare or Family Care: No Gender identity (if verbalized by the patient): Female Spiritual care concerns: No Exam Day of Procedure 04/14/24 13:53 Patient weight:
[2024-04-14] MEDS: ACETAMINOPHEN 500 MG TABLET 1000 MG PO (16:20)
[2024-04-14] MEDS: FAMOTIDINE 20 MG/2 ML VIAL IV PUSH (16:26)
[2024-04-14] MEDS: ONDANSETRON INJ 4 MG/2 ML VIAL IV PUSH (16:26)
--- NOTE | 2024-04-14 16:35 | WPDHPUPDATE1 ---
History and Physical Update Update Date/Time: 04/14/24 16:35 nt section is agreeable
--- NOTE | 2024-04-14 16:36 | PM.DS ---
DS: Admitting Diagnosis Discharge Date 04/16/24 Admitting Diagnosis term/htn DS: Discharge Diagnosis Discharge Diagnosis (1) Chronic hypertension: Code(s): I10 - Essential (primary) hypertension Status: Acute (2) Term : Code(s): Z34.90 - Encounter for supervision of normal , unspecified, unspecified trimester Status: Acute DS: Summary Hospital Course Reason for hospitalization: The patient was admitted for induction of labor 39 weeks gestation with elevated blood pressures. She had a known bicornuate uterus. It was discovered that she was breech and she underwent low-transverse section Hospital Course: the patient is a special course unremarkable. She remained afebrile. She was up, voiding without difficulty, eating regular diet, ambulating, and generally without complaints. Time Spent with Patient Time attestation: Total time spent providing and/or coordinating discharge services: Exam Const: General: cooperative, healthy appearing and comfortable Nutritional Appearance: average body habitus Orientation/consciousness: oriented to person, oriented to place and oriented to time HENMT: Head: normal to inspection Resp: Effort & Inspection: normal respiratory effort Cardio: Rate: regular rate Rhythm: regular rhythm Heart sounds: S1 normal heart sound present and S2 normal heart sound present GI: Inspection: normal to inspection and incision ( Wound clean drain intact) DS: Data Data Completed and Pending Labs on day of discharge: Labs from last 24 hours 04/14/24 06:45 WBC 9.6 RBC 4.26 Hgb 11.7 L Hct 35.3 L MCV 82.9 MCH 27.5 MCHC 33.1 RDW 12.9 Plt Count 219 MPV 9.9 Immature Gran % (Auto) 0.4 Neut % (Auto) 73.0 Lymph % (Auto) 18.4 [place] % (Auto) 5.7 Eos % (Auto) 2.1 Baso % (Auto) 0.4 Lymph # (Auto) 1.76 [place] # (Auto) 0.6 Eos # (Auto) 0.2 Baso # (Auto) 0.0 Abs Immat Gran (auto) 0.04 H Absolute Neuts (auto) 7.0 H Absolute Nucleated RBC 0.000 Nucleated RBC % 0.0 Sodium 134 L Potassium 3.4 Chloride 105 Carbon Dioxide 19 L Anion Gap 10 BUN 10 Creatinine 0.70 Estim Creat Clear Calc Not Reportable Estimated GFR > 60 Glucose 110 Uric Acid 5.4 Calcium 9.0 Total Bilirubin 0.6 AST 21 ALT 10 Alkaline Phosphatase 153 H Total Protein 7.0 Albumin 3.7 RPR Non-reactive HIV 1&2 Ab/P24 Ag 4thGn Negative Blood Type A Positive Antibody Screen Negative Discharge Plan Discharge Attending physician on discharge: Edwin Burgos Discharging Clinician: Edwin Burgos Patient Disposition: Home, Self-Care Activity: may shower, no straining and pelvic rest Diet: heart healthy Wound Care Instructions: follow printed instructions Discharge Instructions: Education: Mom and Baby Guide Given to: Mother Follow-Up: Call your delivering provider's office for an appointment to be seen in: 4 Weeks Mom and baby should come to the [facility] for the follow-up appointment. Appointment Date/Time: April 18, 2024 at 1:30 am What to expect at your follow-up visit: Physical Assessment Call [phone] if you are unable to keep your appointment time. BREAST CARE: * Wear a snug supportive bra. * For engorgement discomfort: Breast Feeding: * Apply warm moist washcloths * Express milk as needed to relieve engorgement * Wear loose clothing * For sore nipples: * Identify correct latch-on * Apply warm moist washcloths before and after nursing * Air dry nipples after nursing * May apply Lansinoh cream to nipples ABDOMINAL INCISION: * Allow incision to air dry * Do NOT use lotions for powders on your incision * When showering, allow soap and water to run over the incision, but do not wash incision PERINEAL CARE: * Until bleeding stops, use your carisa bottle after urinating * Change your pad frequently through
[2024-04-14] MEDS: ceFAZolin 2 GM/D5W 50 ML 2 GM/50 ML BAG IVPB (16:43)
--- NOTE | 2024-04-14 17:16 | W.PM.OBCSD ---
OB - Delivery Note Procedure Delivery date: 04/14/24 Pre-op diagnosis: Elective Induction of Labor and Gestational Hypertension Post-op Diagnosis: Other (Breech) Induction method: AROM Delivery augmentation: Pitocin Delivery monitor: External FHT and External Uterine Prior to decision for section, ACOG/SMFM labor guidelines were considered and discussed with the patient and staff. Decision made to proceed with the section.: Yes Procedure Performed: Primary Surgeon: Edwin Le MD Anesthesia type: Epidural Description of Procedure/Findings: patient was admitted for induction of labor secondary to elevated blood pressures at 30 weeks gestation she had known bicornuate uterus. Week and half prior she did ultrasound which showed vertex presentation. She progressed rapidly from 2cm to complete in a single footling was noted. Plans were made for immediate section. Entertained for consent she was prepped and draped in normal sterile fashion placed in the supine position. Under excellent epidural anesthesia the abdomen is entered in Pfannenstiel fashion progressive layers of fascia. Fascia incised in midline carried upward outward fashion. Underlying muscles sharply dissected. Parietal perineum of lichen clamped and by sharp dissection. This carried superiorly and inferiorly dome of the bladder bladder blade was placed. Bladder flap was formed. Bladder blade returned. Low-transverse incision made and the sacrum was delivered to the maternal right the the single footling in the vagina was brought medially the arms were delivered in the fall toward the midline and the head delivered in a flexed position cord clamped x2 cut and passed off the table given Apgars of 9 [id number]. Cord blood was drawn. Placenta intact manually uterus was the abdomen wrapped in a moist towel. After assuring no membranes remained the uterus, the uterus closed continuous running locking 0 Vicryl lateral at small by 2nd imbricating running locking 0 Vicryl from lateral edge to lateral edge uterus was noted to be bicornuate baby was in the right along with a smaller left horn ovaries and tubes within normal limits. Uterine incision appeared intact. The uterus returned the abdomen. Laps removed and accounted for. Hysterotomy incision inspected 1 last time in a hemostatic. Was pre with [place] term. The fascia was closed with continuous running 0 Vicryl from lateral edge to the was. Using subcutaneously and the skin closed with 4 Monocryl glue patient went recovery in satisfactory condition. All sponge,, instrument counts were correct. Mom and baby fine at time of dictation Estimated Blood Loss: 995 Drains: No Packing: No Pathology: None sent Complications: No immediate complications Condition: Stable Disposition: Floor Baby Date of : 04/14/24 Time of : 16:54 Gestational Age by Date: 39 Infant gender: Female Weight (pounds): 6 Weight (ounces): 15 presentation: other ( single footling breech) Placenta delivery description: Manual Removal Cord Vessel Description: 3 Vessels score one minute: 9 score five minutes: 9
[2024-04-14] MEDS: LACTATED RINGERS 500 ML 999 ML IV CONT (17:25)
[2024-04-14] MEDS: AZITHROMYCIN 500 MG/NS 250 ML 500 MG/250 ML BAG 250 MG IVPB (18:57)
[2024-04-14] MEDS: OXYTOCIN 30 UNITS/NS 500 ML 30 UNITS/500 ML BAG 125 UNITS IV CONT (18:57)
[2024-04-14] MEDS: MORPHINE SULFATE INJ (*CRX) 10 MG/ML AMP 2 MG IV PUSH ×3 (18:58→19:43)
[2024-04-14] MEDS: LIDOCAINE 5% PATCH 1 PATCH TRANSDERM (19:41)
--- NOTE | 2024-04-14 20:08 | OBPPTRN ---
Patient transferred to post room #281 via bed. Support person present. Oriented to unit, room, information board, rooming in, admission packet and security measures. Patient verbalizes understanding.
[2024-04-14] MEDS: HYDROcodone/acetaminophen (*CRX) 5-325 MG TABLET 1 TAB PO (21:04)
[2024-04-14] MEDS: busPIRone HCL 5 MG TABLET 15 MG PO (21:47)
[2024-04-14] MEDS: LABETALOL HCL 100 MG TABLET PO (21:47)
[2024-04-15] VITALS (7 sets, daily range): BP systolic 108–128; BP diastolic 65–79; PULSE 68–100; RESP 16–18; TEMP 36.3–36.9; O2SAT 98–99
[2024-04-15] MEDS: KETOROLAC 15 MG/ML VIAL (*BKC) IV PUSH ×4 (00:44→19:03)
[2024-04-15] MEDS: ACETAMINOPHEN 325 MG TABLET 650 MG PO ×4 (00:44→19:03)
[2024-04-15] MEDS: DEXTROSE 5%/0.45% SOD CHL 1,000 ML 125 ML IV CONT (04:53)
[2024-04-15 06:13] LABS: Basophils Percent Auto 0.3 % (0.2-1.2); Eosinophils Absolute Auto 0.1 K/mm3 (0-0.3); Eosinophils Percent Auto 0.6 % (0-4.4); Hematocrit 30.4 % (37.0-47.0); Hemoglobin 9.7 g/dL (12.0-15.0); Immature Granulocyte Absolute 0.05 K/mm3 (0.00-0.031); Immature Granulocyte Percent A 0.4 % (0-0.5); Lymphocytes Absolute Auto 1.86 K/mm3 (0.9-3.2); Lymphocytes Percent Auto 14.2 % (18.3-44.2); Mean Corpuscular HGB Conc 31.9 g/dl (32-36); Mean Corpuscular Volume 84.7 fl (80-100); Mean Platelet Volume 10.6 fl (7.4-10.4); Monocytes Absolute Auto 0.9 K/mm3 (0.1-0.6); Monocytes Percent Auto 6.7 % (2.6-8.5); Neutrophils Absolute Auto 10.2 K/mm3 (1.3-6.7); Neutrophils Percent Auto 77.8 % (45.5-73.1); Platelet Count Result 184 k/mm3 (150-375); Red Blood Count 3.59 M/mm3 (4.2-5.4); White Blood Count 13.1 K/mm3 (4.5-10.0)
--- NOTE | 2024-04-15 07:22 | PM.OBPNVD ---
OB - PN: Subj Subjective Date/time seen: 04/15/24 07:22 Patient comments: no complaints and pain well controlled baby status: doing well and nursing well OB - PN: Obj Data Labs 04/15/24 04:58 04/14/24 06:45 Labs: Laboratory Results - last 24 hr 04/14/24 04/15/24 06:45 04:58 WBC 13.1 H RBC 3.59 L Hgb 9.7 L Hct 30.4 L MCV 84.7 MCH 27.0 MCHC 31.9 L RDW 13.0 Plt Count 184 MPV 10.6 H Immature Gran % (Auto) 0.4 Neut % (Auto) 77.8 H Lymph % (Auto) 14.2 L [place] % (Auto) 6.7 Eos % (Auto) 0.6 Baso % (Auto) 0.3 Lymph # (Auto) 1.86 [place] # (Auto) 0.9 H Eos # (Auto) 0.1 Baso # (Auto) 0.0 Abs Immat Gran (auto) 0.05 H Absolute Neuts (auto) 10.2 H Absolute Nucleated RBC 0.000 Nucleated RBC % 0.0 Sodium 134 L Potassium 3.4 Chloride 105 Carbon Dioxide 19 L Anion Gap 10 BUN 10 Creatinine 0.70 Estim Creat Clear Calc Not Reportable Estimated GFR > 60 Glucose 110 Uric Acid 5.4 Calcium 9.0 Total Bilirubin 0.6 AST 21 ALT 10 Alkaline Phosphatase 153 H Total Protein 7.0 Albumin 3.7 RPR Non-reactive HIV 1&2 Ab/P24 Ag 4thGn Negative Blood Type A Positive Antibody Screen Negative OB - PN A/P Plan day: 1 Plan: routine care Time Spent With Patient Time: Total time spent is greater than 50% in coordination of care (as documented) at patient's floor/unit and/or counseling patient: Time with patient: less than 15 minutes Exam Const: General: cooperative, healthy appearing and comfortable Nutritional Appearance: average body habitus Orientation/consciousness: oriented to person, oriented to place and oriented to time Resp: Effort & Inspection: normal respiratory effort Cardio: Rate: regular rate Rhythm: regular rhythm Heart sounds: S1 normal heart sound present and S2 normal heart sound present GI: Inspection: normal to inspection and incision ( wound clean dry and intact)
--- NOTE | 2024-04-15 07:30 | PC.NURSE ---
Introductions were made, then consulted with patient to assess needs related to . Mother led the conversation with her?plans to feed?her infant and the?experience so far. Encouraged understanding of the benefits of skin to skin (demonstrating unwrapping infant and placing upright on her chest), stimulating with massage touch, changing positions to encourage wakefulness, how to watch for early feeding cues, responsive feeding, feeding on demand (aiming for 8-12 times in 24 hours, about every 2-3 hours), duration of feeding, and how to record on the feeding sheet. Reviewed positioning and ear, shoulder, hip alignment, supporting the breast to facilitate a deep latch, asymmetrical latch (off-center), leading with the chin with a big, open, wide gape and body close to mother. latched optimally to the [left] breast in [cross cradle] position. Education given to the mother of how to visualize the suckling. Infant was [able] to maintain latch without pain to mother, but would not suck more than a few times. Mother voiced understanding of responsive feedings, hand expressed colostrum, talking to to encourage if it has been 2 -2.5 hours since the start of the last , to call if does not latch, or if there is discomfort with . Parents voiced understanding of information, demonstrated learning and will call if there is a request for assistance. Reported to the Primary RN.
--- NOTE | 2024-04-15 08:16 | WPDANLDNPN2 ---
Anes-Prog Note L&D-Neuraxial Date/Time: 04/15/24 08:16 Patient feedback: Patient satisfied with post-operative pain management.
--- NOTE | 2024-04-15 08:17 | WPDANLDPN2 ---
Anes-Prog Note L&D Date/Time: 04/15/24 08:17 Neuro status: Neuro function grossly intact. Vital Signs: Last Vital Signs Temp 36.9 C 04/15/24 05:00 Pulse 80 04/15/24 05:00 Resp 16 04/15/24 05:00 BP 117/77 04/15/24 05:00 Pulse Ox 98 04/15/24 05:00 O2 Del Method Room Air 04/14/24 19:40 Pain score (VAS): 0 I/O: Intake & Output 04/14/24 04/15/24 04/15/24 23:59 07:59 15:59 Intake Total 1250 500 Output Total 1335 475 Balance -85 25 Patient feedback: Patient satisfied with anesthetic care.
[2024-04-15] MEDS: busPIRone HCL 5 MG TABLET 15 MG PO ×2 (10:00→21:06)
[2024-04-15] MEDS: LABETALOL HCL 100 MG TABLET PO ×2 (10:00→21:08)
[2024-04-15] MEDS: SIMETHICONE 80 MG TAB.CHEW PO ×3 (10:00→17:47)
[2024-04-15] MEDS: DOCUSATE SODIUM 100 MG CAPSULE PO ×2 (10:00→17:47)
[2024-04-15] MEDS: MULTIVIT/MIN/PREN/FOL AC/IRON TABLET 1 TAB PO (10:01)
[2024-04-15] MEDS: POLYSACCHARIDE IRON COMPLEX 150 MG CAPSULE PO (17:47)
[2024-04-15] MEDS: LIDOCAINE 5% PATCH 1 PATCH TRANSDERM (19:21)
[2024-04-15] MEDS: IBUPROFEN 600 MG TABLET PO (19:21)
--- NOTE | 2024-04-16 06:14 | PM.OBPNVD ---
OB - PN: Subj Subjective Date/time seen: 04/16/24 06:14 Patient comments: no complaints and pain well controlled baby status: doing well OB - PN: Obj Data Labs 04/15/24 04:58 04/14/24 06:45 Labs: Laboratory Results - last 24 hr 04/15/24 04:58 WBC 13.1 H RBC 3.59 L Hgb 9.7 L Hct 30.4 L MCV 84.7 MCH 27.0 MCHC 31.9 L RDW 13.0 Plt Count 184 MPV 10.6 H Immature Gran % (Auto) 0.4 Neut % (Auto) 77.8 H Lymph % (Auto) 14.2 L [place] % (Auto) 6.7 Eos % (Auto) 0.6 Baso % (Auto) 0.3 Lymph # (Auto) 1.86 [place] # (Auto) 0.9 H Eos # (Auto) 0.1 Baso # (Auto) 0.0 Abs Immat Gran (auto) 0.05 H Absolute Neuts (auto) 10.2 H Absolute Nucleated RBC 0.000 Nucleated RBC % 0.0 OB - PN A/P Plan day: 2 Plan: routine care Time Spent With Patient Time: Total time spent is greater than 50% in coordination of care (as documented) at patient's floor/unit and/or counseling patient: Time with patient: less than 15 minutes Exam Const: General: cooperative, healthy appearing and comfortable Nutritional Appearance: average body habitus Orientation/consciousness: oriented to person, oriented to place and oriented to time Resp: Effort & Inspection: normal respiratory effort Cardio: Rate: regular rate Rhythm: regular rhythm Heart sounds: S1 normal heart sound present and S2 normal heart sound present GI: Inspection: normal to inspection and incision (cdi)
[2024-04-16] MEDS: HYDROcodone/acetaminophen (*CRX) 10-325 MG TABLET 1 TAB PO ×3 (07:03→13:17)
[2024-04-16] MEDS: ACETAMINOPHEN 325 MG TABLET 650 MG PO ×2 (07:04→13:17)
[2024-04-16] MEDS: IBUPROFEN 600 MG TABLET PO ×2 (07:05→13:18)
[2024-04-16 07:10] VITALS: BP 128/86; PULSE 79; RESP 18; TEMP 36.9
[2024-04-16 10:06] VITALS: PULSE 79
[2024-04-16] MEDS: DOCUSATE SODIUM 100 MG CAPSULE PO (10:06)
[2024-04-16] MEDS: LABETALOL HCL 100 MG TABLET PO (10:06)
[2024-04-16] MEDS: SIMETHICONE 80 MG TAB.CHEW PO ×2 (10:06→13:18)
[2024-04-16] MEDS: MULTIVIT/MIN/PREN/FOL AC/IRON TABLET 1 TAB PO (10:06)
[2024-04-16] MEDS: busPIRone HCL 5 MG TABLET 15 MG PO (10:07)
[2024-04-16] MEDS: POLYSACCHARIDE IRON COMPLEX 150 MG CAPSULE PO (10:07)
--- NOTE | 2024-04-16 10:40 | PC.NURSE ---
Consulted with mother concerning needs and she shared her ability to independently latch infant optimally without pain. Mother is feeding appropriately for growth of and understands stimulating to eat if needed. Infant has had appropriate feedings in the last 24 hours meets the outcomes for weight, output, blood sugar and jaundice at this time. Reinforced understanding of milk production, transition of milk, signs of adequate intake, transition of stool, prevention/relief of engorgement, plugged ducts, mastitis, responsive watching for feeding cues, the different methods of stimulating to breastfeed 1-3 hours after the start of the last feeding, community resources, and when to call a provider using the resource of the feeding sheet along with the mom and baby guide. Mother voiced understanding of the information shared, is confident to continue effectively her infant at home, when to call for assistance, denies any additional assistance or education at this time. Reported to the Primary RN.
[2024-04-18 13:44] VITALS: BP 142/73; PULSE 70; RESP 18; TEMP 36.8; O2SAT 99
== END 2024-04-16 13:35 | disposition home or self-care (01) | DRG 787 ==
LOC: ANHLDR 17:09 → ANHOB2 20:13
PROVIDERS: Admitting Provider Obstetrics & Gynecology; PCP Family Medicine; Visit Provider Obstetrics & Gynecology
PROC: 10D00Z1 Extraction of Products of Conception, Low, Open Approach (ICD-10-PCS; CPT 59514; principal; 2024-04-14 16:30)
DX: O32.8XX0 Maternal care for other malpresentation of fetus, not applicable or unspecified (principal); O10.92 Unspecified pre-existing hypertension complicating childbirth; O34.03 Maternal care for unspecified congenital malformation of uterus, third trimester; Q51.3 Bicornate uterus; O69.82X0 Labor and delivery complicated by other cord entanglement, without compression, not applicable or unspecified; Z3A.39 39 weeks gestation of pregnancy; Z37.0 Single live birth
CPT/HCPCS: 36415; 80053; 84550; 85025; 86592; 86703; 86850; 86900; 86901; A9270; G0432; J0456; J0690; J1885; J2270; J2274; J2405; J2590; J2795; J3010; J7030; J7120

== ENCOUNTER 2025-07-21 08:56 | Outpatient (CLI) | payer OTHER, SELFPAY ==
--- OUTSIDE RECORDS SUMMARY | 2025-07-21 09:00 | XMS_ITS | Clinical Summary ---
Author Organization 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 Gender Identity Not on file Sexual Orientation Not on file Plan of Treatment Health Maintenance Due Date Last Done Comments Hepatitis C Virus (HCV) Screening 1992 Varicella Immunization (1 of 2 - 13+ 2-dose series) 2005 Hepatitis B Immunization (1 of 3 - 19+ 3-dose series) 2011 Pap Smear 2013 Human Papillomavirus (HPV) Immunization (1 - 3-dose SCDM series) 2019 Cervical Cancer Screening (CCS) 2022 HPV/Cotest 2022 Influenza Immunization (#1) 2025 09/3 , 08/02/2020 SARS-COV-2 Immunization (2024- season) 2025 07/08/2021, 10/12/2020, 09/18/2020 Respiratory Syncytial Virus (RSV) Immunization (Adult) (1 - 1-dose 75+ series) 2067 DTaP/Tdap/Td Immunization Discontinued 02/13/2020 TdaP Immunization Completed 02/13/2020 Meningococcal Immunization (ACWY) Aged Out No longer eligible based on patient's age to complete this topic Pneumococcal Immunization Combined Aged Out No longer eligible based on patient's age to complete this topic Rotavirus Immunization Aged Out No lo nger eligible based on patient's age to complete this topic
--- OUTSIDE RECORDS SUMMARY | 2025-07-21 09:00 | XMS_ITS | Clinical Summary ---
Author Organization [facility] Address [address] [place] [address] Care Team Providers Care Engineering Coordinator Name Role Phone Tatyana Jacobsen MD Primary Care Provider [phone] Source Comments [facility],non-owned Affiliates and Associated Physician Practices is amultiple site organization consisting of ambulatory clinics and hospital sitesin [place], [place]. This disclosure is being madepursuant to the Care Everywhere program and may not contain all information available regarding this patient. Last updated 18.[facility] Allergies No known active allergies Medications * Be aware that medications may not be up to date on this document. Alwaysverify current medications with the patient. No known medications Active Problems Problem Noted Date Diagnosed Date Bicornuate uterus Social History Tobacco Use Types Packs/Day Years Used Date Smoking Tobacco: Never Smokeless Tobacco: Never Alcohol Use Standard Drinks/Week Comments No 0 (1 standard drink = 0.6 oz pur e alcohol) Comments Unknown Sex and Gender Information Value Date Recorded Sex Assigned at Not on file Legal Sex Female 5:38 AM DIRECTOR CONSUMER AFFAIRS Gender Identity Not on file Sexual Orientation Not on file Last Filed Vital Signs Vital Sign Reading Time Taken Comments Blood Pressure 110/64 04/28/2018 2:13 PM CDT Pulse 78 04/01/2016 10:51 AM CDT Temperature 36.8 C (98.3 F) 08/13/2015 3:38 PM DIRECTOR CONSUMER AFFAIRS Respiratory Rate 16 08/02/2015 10:26 AM DIRECTOR CONSUMER AFFAIRS Oxygen Saturation - - Inhaled Oxygen Concentration - - Weight 102.1 kg (225 lb) 04/28/2018 2:13 PM CDT Height 162.6 cm (5' 4) 04/28/2018 2:13 PM CDT Body Mass Index 38.62 04/28/2018 2:13 PM CDT Plan of Treatment Health Maintenance Due Date Last Done Comments HIV SCREENING 2007 DTAP/TDAP/TD VACCINES (1 - Tdap) 2011 HEPATITIS B VACCINE (1 of 3 - 19+ 3-dose series) 2011 HPV VACCINE (1 - 3-dose SCDM series) 2019 PAP SMEAR 07/14/2020 07/14/2017, 04/2016, 04/01/2016, Additional history exists Cervical Cancer Screening 2022 PAP with HPV 2022 DEPRESSION SCREENING 08/24/2024 COVID-19 VACCINE ( season) 2025 INFLUENZA VACCINE (#1) 2025 ZOSTER VACCINE (1 of 2) 2042 HEPATITIS C SCREENING Completed 08/14/2011 HIB VACCINE Aged Out No longer eligi ble based on patient's age to complete this topic MENINGOCOCCAL (Group B) VACCINE SHARED DECISION-MAKING Aged Out No longer eligible based on patient's age to complete this topic MENINGOCOCCAL GROUPS A/C/Y/W VACCINE Aged Out No longer eligible based on patient's age to complete this topic PNEUMOCOCCAL VACCINE Aged Out No long er eligible based on patient's age to complete this topic Procedures Procedure Name Priority Date/Time Associated Diagnosis Comments PAP IG RFLX HPV ASCU Routine 07/14/2017 12:00 AM DIRECTOR CONSUMER AFFAIRS HEPATITIS C ANTIBODY Routine 08/14/2011 10:44 AM DIRECTOR CONSUMER AFFAIRS from Last 3 Months or Most Recently Relevant to Health Maintenance Results * (ABNORMAL) PAP IG RFLX HPV ASCU (07/14/2017 12:00 AM DIRECTOR CONSUMER AFFAIRS) Pap Image-Guided Liquid-Based with Reflex HPV Accession No: [id number] Specimen:Not Indicated ThinPrep Slides:1 SPECIMEN ADEQUACY: SATISFACTORY FOR EVALUATION - Endocervical / Transformation Zone Component Present INTERPRETATION: EPITHELIAL CELL ABNORMALITY ATYPICAL SQUAMOUS CELLS OF UNDETERMINED SIGNIFICANCE NOTE(S): HPV REFLEX - HPV result to follow if ASCUS in separate report This specimen was evaluated by the ThinPrep Imaging System along with an additional manual rescreening by a director of construction and/or pathologist Initial Evaluation performed by Can ZAPATA(ASCP). Electronically signed 07/15/2017 Interpretation performed by Can Hernandez MD. Electronically signed 07/20/2017 (A) [facility] Endocervical 07/14/2017 07/15/2017 9 :00 AM DIRECTOR CONSUMER AFFAIRS Temitope Blake MD LAB - PATHOLOGY/CYTOLOGY ORDERA BLES Final Result [facility] [address] [phone] * HEPATITIS C ANTIBODY (08/14/2011 10:44 AM DIRECTOR CONSUMER AFFAIRS) Hepatitis C Antibody NEGATIVE NEGATIVE [facility] Comment: Anti-HCV screen indicates no serologic evidence of past or current infection with Hepatitis C Virus. 08/14/2011 10:4 4 AM DIRECTOR CONSUMER AFFAIRS 08/14/2011 11:51 AM DIRECTOR CONSUMER AFFAIRS Roya Provider LAB - CHEMISTRY ORDERABLE S Final Result [address] [phone] from Last 3 Months or Most Recently Relevant to Health Maintenance Insurance [facility] Member Subscriber Plan / Payer (Ef fective 2012-Present) Name:Clara Daigle Relation to Subscriber:Self Name:CLARA MIRANDA Payer ID:[id number] (NAIC) Group ID:[id number] Type:O Address: [facility] [id number] [place] [id number] Care Teams Engineering Coordinator Relationship Specialty Start Date End Date Tatyana Jacobsen MD [address] [place] [id number] PCP - General 04/01/18
--- NOTE | 2025-07-21 09:07 | ECG_ITS ---
Test Date: 2025-07-21 09:21:01 Measurements Intervals [place] Rate: 77 P: 31 WY: 131 QRS: 50 QRSD: 104 T: 8 QT: 393 QTc: 447 Interpretive Statements SINUS RHYTHM WITHIN NORMAL LIMITS No previous ECG available for comparison Electronically Signed On 07-21-2025 13:23:48 ATHLETICS DIRECTOR by Edmond Lora M.D.
[2025-07-21 09:18] LABS: Hematocrit 42.5 % (37.0-47.0); Hemoglobin 13.9 g/dL (12.0-15.0); Mean Corpuscular HGB Conc 32.7 g/dl (32-36); Mean Corpuscular Hemoglobin 29.4 pg (26-34); Mean Corpuscular Volume 89.9 fl (80-100); Platelet Count Result 287 k/mm3 (150-375); Red Blood Count 4.73 M/mm3 (4.2-5.4); White Blood Count 7.4 K/mm3 (4.5-10.0)
[2025-07-21 09:40] LABS: Anion Gap 5 mmol/L (4-12); Blood Urea Nitrogen 10 mg/dL (7-17); Calcium 9.2 mg/dL (8.4-10.2); Carbon Dioxide 29 mmol/L (22-30); Chloride 105 mmol/L (98-107); Estimated Glomerular Filt Rate > 60; Glucose 96 mg/dL (65-110); Potassium 3.7 mmol/L (3.4-5.0); Sodium 139 mmol/L (137-145)
== END 2025-07-21 08:57 | disposition home or self-care (01) ==
LOC: ANHLAB 08:58
PROVIDERS: Obstetrics & Gynecology; PCP Family Medicine; Visit Provider Anesthesiology
DX: I10 Essential (primary) hypertension (principal); R10.20 Pelvic and perineal pain unspecified side
CPT/HCPCS: 36415; 80048; 85027; 86850; 86900; 86901; 93005

== ENCOUNTER 2025-07-28 00:28 | Day surgery (SDC) | payer OTHER, SELFPAY ==
--- NOTE | 2025-07-18 14:38 | PC.NURSE ---
[facility] has started construction of its new state of the art ER which will open Spring 2026. With this, we anticipate parking may be a challenge for some our surgical patients and families. Parking spaces are limited but are available for all Surgical, obstetrics, and ER patients sharing this lot. If you arrive and find you are having a hard time finding a parking space, please note that we understand the challenges, please drive around the hospital and park near Hospital Entrance 1. When you enter this entrance, you can ask a volunteer to direct or take you back to the surgical waiting area to check in. We appreciate everyone?s understanding of these expected challenges while we build for your future. Report to the Outpatient Waiting Room, entrance under the green pavilion located off [address], at time _9:30 am on date ___[phone]____. Planned Procedure Time: __11:30am Time changes happen often and if your time is changed the preop area will call you the afternoon before. - You and your visitor will be asked to self-screen and do not enter if you have any COVID symptoms. Please call surgeon if you need to reschedule. - A mask is optional within the hospital at this time. Patients may have clear liquids (water, carbonated beverages, clear teas, apple juice) until 3 hours prior to surgery with a maximum of 20 ounces. STOP AT 8:30 AM - No food from midnight until time of surgery and no smoking, or chewing tobacco (or any form of nicotine). No chewing gum, candy or mints. - Infants may have breast milk until 4 hours before surgery, formula 6 hours prior to surgery. - Children will be allowed to drink immediately following surgery.? If applicable, please bring a bottle or sippy cup to assist with drinking. Juice, water, soda, and popsicles are readily available.? For infants on formula, please bring formula the day of surgery.? Pacifiers are allowed. Take only the following medications with a SIP of water on the morning of surgery: ___PRISTIQ DO NOT STOP ANY OF YOUR OTHER PRESCRIPTION MEDICATIONS PRIOR TO SURGERY EXCEPT THE FOLLOWING: DO NOT TAKE YOUR LISINOPRIL/HCTZ THE MORNING OF SURGERY. Hold all vitamins and supplements for 3 days per anesthesiologist. N/A Please no make-up, nail algerian, hairspray, perfume, deodorant, or body powder the day of surgery.? No jewelry (including any body piercings) or valuables the day of surgery, leave them at home.? Please take a shower or bath the night before, or the morning of, surgery with an antibacterial soap.? Wear comfortable, loose fitting clothing.? - Jewelry must be removed prior to entering the operating room.? Rings and piercings that are not removed may be cut off. - The hospital will not accept responsibility for valuables.? - Please leave all valuables, including medications, at home the day of surgery. If you are going home after surgery, a licensed dumpcart driver must drive you home.? - NO public transportation without another adult if you receive anesthesia. - We recommend that an adult stay with you for 24 hours following discharge. - We also recommend that you do not drive, make important decision, drink alcoholic beverages, or take any drugs that were not prescribed by your health care provider for at least 24 hours after your discharge time. Follow any additional instructions given to you from your surgeon. Telephone instructions given to __PATIENT/MEGAN and asked if any additional questions and then verbalized understanding. Patient advised to call surgeon office or pre surgery nurse liaison [phone] if any additional questions.
--- NOTE | 2025-07-24 07:13 | PM.IMHP ---
H&P: HPI History of Present Illness Date/Time: 07/24/25 07:13 Chief Complaint: Pelvic pain with excessive heavy bleeding and dysmenorrhea dyspareunia and bicornuate uterus Narrative: 35-year-old female with a history of pelvic pain dyspareunia and known bicornuate uterus. She has finished with childbearing and medical therapy has been unsuccessful treating this bleeding and pain risks and benefits of this procedure reviewed including not exclusive of , aspiration pneumonia, bleeding, transfusion, perforation injury to bowel, bladder, ureters, or other internal organs with need for open laparotomy. She received the ACOG handout entitled hysterectomy as well as de Romeo handout. She had all questions answered. She has proceed Review of Systems Review of Systems: All systems reviewed & are unremarkable except as noted in HPI and below Constitutional: Constitutional: Reports no additional constitutional complaints Eyes: Eyes: Reports no additional eye complaints ENT: Reports system reviewed and no additional complaints, except as documented Cardiovascular: Cardiovascular: Reports no additional cardiovascular complaints, Denies chest pain and Denies dyspnea Respiratory: Respiratory: Reports no additional respiratory complaints, Denies chest congestion, Denies cough and Denies dyspnea Gastrointestinal: Gastrointestinal: Reports no additional gastrointestinal complaints, Denies abdominal pain, Denies nausea and Denies vomiting Musculoskeletal: Musculoskeletal: Reports as per HPI and Reports back pain Integumentary/Breasts: Skin/Breast: Reports system reviewed and no additional complaints, except as docu Neurologic: Reports system reviewed and no additional complaints, except as documented Psychiatric: Psychiatric: Reports no additional psychiatric complaints Allergic/Immunologic: Allergic/Immunologic: Reports no additional allergic/immunologic complaints [facility] Past Medical History Medical History (Updated 07/24/25 @ 07:16 by Edwin Le MD) History of COVID-19 Migraine NOS/intractable Sprain of unspecified site of sacroiliac region Migraine Bicornate uterus Fibromyalgia Family History Family History Grandparent Family history of malignant neoplasm of breast Social History Social History Years smoked: 2 Smoking status: Former smoker Tobacco type: cigarettes Second hand tobacco smoke exposure: No Alcohol intake: never Substance use: never Substance use type: does not use Last use: 2019 Lack of Transportation: No Lack of Food: Never True Current Housing: I Have Housing Concerned About Future Housing: No Difficulty Paying Gas/Electric Bills: No Difficulty Paying for Meds: No Currently Unemployed: No Education: Master's Degree or Higher Difficulty w/ Childcare or Family Care: No Living arrangements: with family Gender identity (if verbalized by the patient): Female Spiritual care concerns: No Meds Home Medications and Allergies Home Medications ?Medication ?Instructions ?Recorded ?Confirmed ?Type desvenlafaxine succinate 100 mg 100 mg PO Q24H 07/18/25 07/18/25 History tablet,extended release 24 hr lisinopril 10 1 tablet PO DAILY 07/18/25 07/18/25 History mg-hydrochlorothiazide 12.5 mg tablet Allergies Allergy/AdvReac Type Severity Reaction Status Date / Time nifedipine AdvReac Severe headache Verified 10/28/24 11:38 Exam Const: General: cooperative, healthy appearing and comfortable Nutritional Appearance: overweight Orientation/consciousness: oriented to person, oriented to place and oriented to time HENMT: Head: normal to inspection Resp: Effort & Inspection: normal respiratory effort Cardio: Rate: regular rate Rhythm: regular rhythm Heart sounds: S1 normal heart sound present and S2 normal heart sound present GI: Inspection: normal to inspection : External Female Exam: normal external appearance Speculum Exam - Vagina: normal appearance of the vagina Speculum Exam - Cervix: normal appearance of the cervix Bimanual exam- vagina & uterus: enlarged Bimanual Exam- Adnexa, other: normal adnexae Assessment and Plan Assessment and plan (1) Bicornate uterus: Code(s): Q51.3 - Bicornate uterus Status: Acute (2) Obesity: Qualifiers: Obesity type: unspecified obesity type Obesity classification: adult class 2 (BMI 35 - 39.9) Serious obesity comorbidity presence: without serious comorbidity Body mass index: BMI 37.0-37.9 Qualified Code(s): E66.9 - Obesity, unspecified; Z68.37 - Body mass index [BMI] 37.0-37.9, adult Code(s): E66.9 - Obesity, unspecified Status: Acute (3) Fibromyalgia: Code(s): M79.7 - Fibromyalgia Status: Acute (4) Pelvic pain: Code(s): R10.20 - Pelvic and perineal pain unspecified side Status: Acute (5) Dysmenorrhea: Code(s): N94.6 - Dysmenorrhea, unspecified Status: Acute (6) Dyspareunia: Status: Acute Plan Will proceed with robotic bilateral salpingectomy and robotic total vaginal hysterectomy
[2025-07-28] VITALS (8 sets, daily range): BP systolic 112–139; BP diastolic 70–98; PULSE 71–99; RESP 10–24; TEMP 36.4–36.7; O2SAT 96–100; BMI 36.6
--- OUTSIDE RECORDS SUMMARY | 2025-07-28 00:31 | XMS_ITS | Clinical Summary ---
Author Organization [facility] Address [address] [place] [id number] Care Team Providers Care Hand Sewer Shoes Name Role Phone Unavailable Primary Care Provider Unavailabl e Immunizations Immunization Administration Dates Next Due Covid-19, Mrna, Lnp-s, PF, 5 0 mcg/0.25 mL dose (Moderna) 07/08/2021 Social History Tobacco Use Types Packs/Day Years Used Date Smoking Tobacco: Never Assessed Comments Unknown Sex and Gender Information Value Date Recorded Sex Assigned at Not on file Legal Sex Female 3:02 PM PROGRAM PROPOSALS COORDINATOR Gender Identity Not on file Sexual Orientation [...]
--- NOTE | 2025-07-28 06:49 | WPDHPUPDATE1 ---
History and Physical Update Update Date/Time: 07/28/25 06:49 History and Physical has been reviewed, including an updated exam of the patient. There are NO changes in the patient's condition. Risks, benefits, and alternatives have been discussed and questions answered. Patient agrees to proceed with procedure.
--- NOTE | 2025-07-28 10:28 | WPDANESEPPF ---
Anes - Initial Pre Proc Eval Procedure: Operation Date: 07/28/25 11:30 Proposed Procedures p Robotic Assisted Total Vaginal Hysterectomy with Bilateral Salpingectomy - Edwin Le MD Date/Time: 07/28/25 10:28 Surgeon: Edwin Le MD Pre Op Diagnosis: pelvoc pain, dyspareunia ,bicornuate uterus Patient Data Age: 35 Gender: F Height: Weight: Allergies Allergy/AdvReac Type Severity Reaction Status Date / Time nifedipine AdvReac Severe headache Verified 10/28/24 11:38 Home Medications ?Medication ?Instructions ?Recorded ?Confirmed ?Type desvenlafaxine succinate 100 mg 100 mg PO Q24H 07/18/25 07/28/25 History tablet,extended release 24 hr lisinopril 10 1 tablet PO DAILY 07/18/25 07/28/25 History mg-hydrochlorothiazide 12.5 mg tablet Yo Women's Multi See Rx Instructions PO DAILY 07/28/25 07/28/25 History hydrocodone 5 mg-acetaminophen 325 1 tablet PO Q4H PRN pain #20 tabs 07/28/25 Rx mg tablet Patient hx anesthesia problems: none Family hx anesthesia problems: none Results Review: All pre-operative results and documents have been reviewed as part of the pre-operative evaluation. [facility] Past Medical History Medical History (Updated 07/28/25 @ 10:29 by Gaurav Stanley DO) Hypertension History of COVID-19 Migraine NOS/intractable Sprain of unspecified site of sacroiliac region Migraine Bicornate uterus Fibromyalgia Family History Family History Grandparent Family history of malignant neoplasm of breast Social History Social History Years smoked: 2 Smoking status: Former smoker Tobacco type: cigarettes Second hand tobacco smoke exposure: No Alcohol intake: never Substance use: never Substance use type: does not use Last use: 2019 Lack of Transportation: No Lack of Food: Never True Current Housing: I Have Housing Concerned About Future Housing: No Difficulty Paying Gas/Electric Bills: No Difficulty Paying for Meds: No Currently Unemployed: No Education: Master's Degree or Higher Difficulty w/ Childcare or Family Care: No Living arrangements: with family Gender identity (if verbalized by the patient): Female Spiritual care concerns: No Anes - Eval Final PreProcedure Day of Procedure 07/28/25 10:28 Patient weight: obese Heart: regular rate and rhythm Lungs: clear to auscultation Airway: Mallampati scale class II Neurological: alert and oriented Last oral intake: >/= 8 hours ASA classification: III Emergent: no Anesthetic plan: proceed Anesthesia type and monitoring: general ETT and standard monitoring Results Review: All pre-operative results and documents have been reviewed as part of the pre-operative evaluation. Informed Consent: The patient's anesthetic plan and its attendant risks and benefits were discussed with the patient/family/POA. Questions were solicited and answers provided to the satisfaction of the patient/family/POA.
[2025-07-28] MEDS: LACTATED RINGERS 1,000 ML 30 ML IV CONT ×2 (10:43→14:05)
[2025-07-28] MEDS: KETOROLAC 15 MG/ML VIAL (*BKC) IV PUSH (10:43)
[2025-07-28] MEDS: ACETAMINOPHEN 500 MG TABLET 1000 MG PO ×2 (10:43→16:59)
[2025-07-28 10:44] LABS: BEDSIDEPREGUCG Negative (Negative)
[2025-07-28] MEDS: ceFAZolin 2 GM in SODIUM CHLORIDE 0.9% IV 50 ML 100 ML IVPB (12:34)
--- NOTE | 2025-07-28 13:39 | S_PTH ---
PATIENT: Clara Daigle LOC: [facility] U#:[id number] AGE/SX: 35/F ROOM: RE07/28/[address]: Edwin Le MD : 1990 BED: DIS: 07/29/2025 SPEC #: [id number] RECD: 07/28/25 14:24 STATUS: MARTHA REQ #: [id number] [place]AS[place]: 07/28/25 13:[address]: Edwin Burgos DEPT: [facility] Surgical RECD BY: Nina Fan ENTERED: 07/28/25 14:24 SP TYPE: Surgical OTHR DR: Tatyana Jacobsen MD Tissues: A - Uterus Procedures: Hematoxylin and Eosin Stain Gross and Microscopic Level 5
--- NOTE | 2025-07-28 13:49 | P.OP_ITS ---
Procedure Note - Detailed Date of Procedure 07/28/25 Pre-op Diagnosis pelvoc pain, dyspareunia ,bicornuate uterus Post-op Diagnosis Same Procedure Performed Robotic total vaginal hysterectomy and bilateral salpingectomy Surgeon Edwin Le MD Anesthesia General Indications 35-year-old female with known bicornuate uterus pain and irregular bleeding Findings Enlarged bicornuate uterus with what appeared to be a fibroid. Normal-appearing and tubes Description of Procedure Patient was prepped draped in the normal sterile fashion placed in the dorsal lithotomy position. Under excellent general trach anesthesia weighted speculum placed in posterior fornix. Anterior lip of the cervix grasped with a single- tooth tenaculum. Uterus sounded to 11cm. Serial dilatation fragmented dilators performed followed by passage of the 10. MARY and the 3. Cold cup. Next the 16 Jama[place] catheter was placed in bladder the weighted speculum and the single-tooth removed and the gloves were changed. Supraumbilical incision made the Veress needle passed in the abdomen. Abdomen filled with CO2 gas [id number]. The 8mm trocar advanced in the abdomen. Downside visualized no injury seen. Patient placed in atrial degrees Trendelenburg and right left lateral quadrant incisions made 8mm trocars advanced under direct visualization assuring no injury. Right upper quadrant incision made 8mm trocar advanced under direct visualization assuring no injury the robot was docked. Attention was turned to the family life counselor. The left round ligament grasped, burned, cut. Anteriorly a bladder flap was formed by sharply dissecting the peritoneum and reflecting the bladder caudally away from the cervix uterus the opposite round ligament which was clamped, burned, cut. Next the left fallopian tube was sharply dissected away from the ovarian complex and brought to level of the origin at the uterus. In similar fashion the right fallopian tube was cauterized and cut and left attached to the uterine origin. The left utero- ovarian ligament was skeletonized to conserve the left ovary this was clamped, burned, cut and brought to level of previously cut round Rob. In similar fashion conserving the right ovary the utero-ovarian ligament was clamped, burned, cut and brought to level of previously cut round ligament. Cardinal broad ligaments on the left were then serially skeletonized clamping burning cutting and bringing this down the lateral edge of the cervix uterus until the large uterine vessels could be seen. These were clamped burned and cut. In similar fashion on the right cardinal broad ligaments were serially skeletonized clamping burning cutting and bringing this down the lateral edge of the uterus and cervix until the large vessels could be seen on the right these were individually clamped, burned, cut. A colpotomy incision was made in the cervix uterus and tubes removed through the vagina. The vagina was then closed in continuous running 0V lock from lateral edge to lateral edge and brought back to the midline. Irrigation undertaken to clear. Hemostasis was assured [place] term was placed over the raw surface edge the robot was undocked. The gas removed from the abdomen the trocars removed the incisions closed with 4 Monocryl glue. There were no immediate complications Estimated Blood Loss 25 Drains No Packing No Pathology Yes Complications No immediate complications Condition Stable Disposition PACU
--- NOTE | 2025-07-28 13:55 | PM.DS ---
DS: Admitting Diagnosis Discharge Date 07/29/2025 25 Admitting Diagnosis By car uterus/excessive heavy bleeding/pelvic pain DS: Discharge Diagnosis Discharge Diagnosis (1) Bicornate uterus: Code(s): Q51.3 - Bicornate uterus Status: Acute (2) Pelvic pain: Code(s): R10.20 - Pelvic and perineal pain unspecified side Status: Acute (3) Dysmenorrhea: Code(s): N94.6 - Dysmenorrhea, unspecified Status: Acute (4) Dyspareunia: Status: Acute DS: Summary Hospital Course Reason for hospitalization: Patient underwent robotic total vaginal hysterectomy bilateral salpingectomy on 07/28/2025 Hospital Course: Patient's hospital course unremarkable. She remained afebrile. She was up, voiding without difficulty, eating regular diet, ambulating, and generally without complaints. Time Spent with Patient Time attestation: Total time spent providing and/or coordinating discharge services: Exam Const: General: cooperative, healthy appearing and comfortable Nutritional Appearance: overweight Orientation/consciousness: oriented to person, oriented to place and oriented to time HENMT: Head: normal to inspection Resp: Effort & Inspection: normal respiratory effort Cardio: Rate: regular rate Rhythm: regular rhythm Heart sounds: S1 normal heart sound present and S2 normal heart sound present GI: Inspection: normal to inspection : External Female Exam: normal external appearance Speculum Exam - Vagina: normal appearance of the vagina Speculum Exam - Cervix: normal appearance of the cervix Bimanual exam- vagina & uterus: enlarged Bimanual Exam- Adnexa, other: normal adnexae DS: Data Data Completed and Pending Pending studies at discharge: Pending at discharge 07/28/25 13:39 Surgical [PTH] Routine Labs on day of discharge: Labs from last 24 hours 07/28/25 10:36 POC Urine HCG, Qual Negative Discharge Plan Discharge Patient Disposition: Home Patient Language: Mohawk Stand Alone Forms: General Discharge Instructions Follow-up/Referrals: Edwin Burgos MD [Physician, SUPERANNUATION CLERK] Discharge Medications: New hydrocodone-acetaminophen 5-325 mg tablet 1 tablet PO Q4H PRN (Reason: pain) Qty: 20 0RF No Action desvenlafaxine succinate 100 mg tablet extended release 24 hr 100 mg PO Q24H lisinopril-hydrochlorothiazide 10-12.5 mg tablet 1 tablet PO DAILY Yo Women's Multi See Rx Instructions PO DAILY Rx Instructions: orally daily; 2 gummies;
[2025-07-28] MEDS: fentaNYL CITRATE INJ (*CRX) 100 MCG/2 ML VIAL 25 MCG IV PUSH ×4 (14:20→14:36)
--- NOTE | 2025-07-28 15:15 | PC.NURSE ---
This patient, Clara Daigle, was received from PACU via stretcher on 07/28/25 at 1515. Patient/family oriented to unit policies and routines.
[2025-07-28] MEDS: DEXTROSE 5%/LACTATED RINGERS 1,000 ML 125 ML IV CONT (15:42)
[2025-07-28] MEDS: oxyCODONE HCL (*CRX) 5 MG TAB IR PO (15:42)
[2025-07-28] MEDS: KETOROLAC 30 MG/ML VIAL (*BKC) IV PUSH (16:50)
[2025-07-28] MEDS: ONDANSETRON INJ 4 MG/2 ML VIAL IV PUSH (16:51)
[2025-07-28] MEDS: SIMETHICONE 80 MG TAB.CHEW PO (16:58)
[2025-07-28] MEDS: DOCUSATE SODIUM 100 MG CAPSULE PO (16:59)
[2025-07-28] MEDS: LACTATED RINGERS 1,000 ML 500 ML (17:07)
[2025-07-29] MEDS: ACETAMINOPHEN 500 MG TABLET 1000 MG PO ×2 (00:03→06:37)
[2025-07-29] MEDS: SIMETHICONE 80 MG TAB.CHEW PO ×2 (00:03→08:11)
[2025-07-29] MEDS: KETOROLAC 30 MG/ML VIAL (*BKC) IV PUSH ×2 (00:03→06:36)
[2025-07-29 00:05] VITALS: BP 114/68; PULSE 85; RESP 15; TEMP 36.7; O2SAT 100
[2025-07-29 03:25] VITALS: BP 111/84; PULSE 85; RESP 14; TEMP 36.6; O2SAT 100
[2025-07-29 03:52] LABS: Hematocrit 36.7 % (37.0-47.0); Hemoglobin 12.2 g/dL (12.0-15.0); Immature Granulocyte Percent A 0.5 % (0-0.5); Lymphocytes Absolute Auto 1.30 K/mm3 (0.9-3.2); Mean Corpuscular HGB Conc 33.2 g/dl (32-36); Mean Corpuscular Hemoglobin 29.8 pg (26-34); Mean Corpuscular Volume 89.5 fl (80-100); Nucleated Red Blood Cells Absolute Auto 0.000 K/mm3 (0.0-0.012); Nucleated Red Blood Cells Perc 0.0 % (0.0-0.2); Platelet Count Result 294 k/mm3 (150-375); Red Blood Count 4.10 M/mm3 (4.2-5.4); White Blood Count 15.1 K/mm3 (4.5-10.0)
--- NOTE | 2025-07-29 05:29 | PM.GYNPNOP ---
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 fu 2 weeks Postoperative Procedures: Procedures Operation Date: 07/28/25 11:30 Actual Procedure Side Surgeon p Robotic Assisted Total Vaginal Hysterectomy with Bilateral Salpingectomy Bilateral Edwin Le MD Time Spent With Patient Time: Total time spent is greater than 50% in coordination of care (as documented) at patient's floor/unit and/or counseling patient: Time with patient: less than 15 minutes [employer]- PN:Subj Post-Op Subjective Date/time seen: 07/29/25 05:29 Subjective: patient reports feeling better, patient has no complaints, patient desires discharge, pain is well controlled and patient is tolerating oral intake Review of Systems Review of Systems: All systems reviewed & are unremarkable except as noted in HPI and below Constitutional: Constitutional: Reports no additional constitutional complaints Eyes: Eyes: Reports no additional eye complaints ENT: Reports system reviewed and no additional complaints, except as documented Cardiovascular: Cardiovascular: Reports no additional cardiovascular complaints, Denies chest pain and Denies dyspnea Respiratory: Respiratory: Reports no additional respiratory complaints, Denies chest congestion, Denies cough and Denies dyspnea Gastrointestinal: Gastrointestinal: Reports no additional gastrointestinal complaints, Denies abdominal pain, Denies nausea and Denies vomiting Musculoskeletal: Musculoskeletal: Reports as per HPI and Reports back pain Integumentary/Breasts: Skin/Breast: Reports system reviewed and no additional complaints, except as docu Neurologic: Reports system reviewed and no additional complaints, except as documented Psychiatric: Psychiatric: Reports no additional psychiatric complaints Allergic/Immunologic: Allergic/Immunologic: Reports no additional allergic/immunologic complaints Exam Const: General: cooperative, healthy appearing and comfortable Nutritional Appearance: overweight Orientation/consciousness: oriented to person, oriented to place and oriented to time HENMT: Head: normal to inspection Resp: Effort & Inspection: normal respiratory effort Cardio: Rate: regular rate Rhythm: regular rhythm Heart sounds: S1 normal heart sound present and S2 normal heart sound present GI: Inspection: normal to inspection : External Female Exam: normal external appearance Speculum Exam - Vagina: normal appearance of the vagina Speculum Exam - Cervix: normal appearance of the cervix Bimanual exam- vagina & uterus: enlarged Bimanual Exam- Adnexa, other: normal adnexae [employer] - PN: Obj Data Vital Signs Vital Signs: Vital Signs - 24 hr 07/28/25 10:36 07/28/25 14:05 07/28/25 14:15 Temperature 97.6 F 97.5 F L Pulse Rate 71 96 88 Respiratory Rate 24 H 18 Blood Pressure 129/83 112/88 115/74 Pulse Oximetry 100 100 100 Oxygen Delivery Room Air Simple Face Mask Simple Face Mask Oxygen Flow Rate 8 8 07/28/25 14:30 07/28/25 14:45 07/28/25 15:00 Temperature Pulse Rate 99 84 84 Respiratory Rate 10 L 16 14 Blood Pressure 117/98 H 139/70 124/76 Pulse Oximetry 99 96 97 Oxygen Delivery Room Air Room Air Room Air Oxygen Flow Rate 07/28/25 15:20 07/28/25 19:30 07/29/25 00:05 Temperature 97.9 F 98.1 F 98.1 F Pulse Rate 83 89 85 Respiratory Rate 20 20 15 Blood Pressure 123/85 135/77 114/68 Pulse Oximetry 98 99 100 Oxygen Delivery Oxygen Flow Rate 07/29/25 03:25 Temperature 97.8 F Pulse Rate 85 Respiratory Rate 14 Blood Pressure 111/84 Pulse Oximetry 100 Oxygen Delivery Oxygen Flow Rate Intake/Output Intake/Output: Intake & Output 07/26/25 07/27/25 07/28/25 07/29/25 23:59 23:59 23:59 23:59 Intake Total 2340 Output Total 50 1400 Balance 2290 -1400 Meds/Results Medications: Active Medications Generic Name Dose Route Start Last Admin Trade Name Freq PRN Reason Stop Dose Admin Acetaminophen 1,000 mg 07/28/25 18:00 07/29/25 00:03 Acetaminophen 500 Mg Tablet PO 1,000 mg Q6HR MONICA Administration Docusate Sodium 100 mg 07/28/25 17:00 07/28/25 16:59 Docusate Sodium 100 Mg Capsule PO 100 mg BID MONICA Administration Enoxaparin Sodium 40 mg 07/29/25 09:00 Enoxaparin 40 Mg/0.4 Ml Syringe SUB-Q DAILY [facility] Dextrose/Lactated Ringer's 1,000 mls @ 125 mls/hr 07/28/25 15:09 07/28/25 23:42 Dextrose 5%/Lactated Ringers IV CONT Infused .Q8H MONICA Infusion Ibuprofen 600 mg 07/29/25 12:00 Ibuprofen 600 Mg Tablet PO Q6HR MONICA Ketorolac Tromethamine 30 mg 07/28/25 18:00 07/29/25 00:03 Ketorolac 30 Mg/Ml Vial (*Bkc) IV PUSH 07/29/25 06:01 30 mg Q6HR MONICA Administration Naloxone HCl 0.1 mg 07/28/25 15:09 Naloxone Hcl 0.4 Mg/Ml Vial IV PUSH Q2M PRN Respiratory rate less than 10 Ondansetron HCl 4 mg 07/28/25 15:09 07/28/25 16:51 Ondansetron Inj 4 Mg/2 Ml Vial IV PUSH 4 mg Q6H PRN Administration Nausea And Vomiting Oxycodone HCl 5 mg 07/28/25 15:09 07/28/25 15:42 Oxycodone Hcl (*Crx) 5 Mg Tab Ir PO 5 mg Q4H PRN Administration Pain Rated 4-6 Oxycodone HCl 10 mg 07/28/25 15:09 Oxycodone Hcl (*Crx) 5 Mg Tab Ir PO Q6H PRN Pain Rated 7-10 Simethicone 80 mg 07/28/25 17:00 07/29/25 00:03 Simethicone 80 Mg Tab.Chew PO 80 mg TIDWM MONICA Administration Labs 07/29/25 03:08 Labs: Laboratory Results - last 24 hr 07/28/25 07/29/25 10:36 03:08 WBC 15.1 H RBC 4.10 L Hgb 12.2 Hct 36.7 L MCV 89.5 MCH 29.8 MCHC 33.2 RDW 12.1 Plt Count 294 MPV 9.6 Immature Gran % (Auto) 0.5 Neut % (Auto) 84.4 H Lymph % (Auto) 8.6 L [place] % (Auto) 5.9 Eos % (Auto) 0.3 Baso % (Auto) 0.3 Lymph # (Auto) 1.30 [place] # (Auto) 0.9 H Eos # (Auto) 0.0 Baso # (Auto) 0.0 Abs Immat Gran (auto) 0.07 H Absolute Neuts (auto) 12.7 H Absolute Nucleated RBC 0.000 Nucleated RBC % 0.0 POC Urine HCG, Qual Negative
[2025-07-29 07:00] VITALS: BP 115/64; PULSE 86; RESP 16; TEMP 37.1; O2SAT 100
[2025-07-29] MEDS: ENOXAPARIN 40 MG/0.4 ML SYRINGE SUB-Q (08:12)
[2025-07-29] MEDS: DOCUSATE SODIUM 100 MG CAPSULE PO (08:12)
[2025-07-29] MEDS: oxyCODONE HCL (*CRX) 5 MG TAB IR PO (08:12)
== END 2025-07-29 10:12 | disposition home or self-care (01) ==
LOC: ANHSURGERY 09:41 → ANHOB2 15:11
PROVIDERS: PCP Family Medicine; Visit Provider Obstetrics & Gynecology
PROC: (CPT 58552; principal; 2025-07-28 11:30)
DX: Q51.3 Bicornate uterus (principal); I10 Essential (primary) hypertension; M79.7 Fibromyalgia; E66.9 Obesity, unspecified; Z68.36 Body mass index [BMI] 36.0-36.9, adult; Z79.891 Long term (current) use of opiate analgesic; Z87.891 Personal history of nicotine dependence; Z80.3 Family history of malignant neoplasm of breast
CPT/HCPCS: 58552; S2900; 36415; 85025; 88307; J0690; A9270; J1100; J1650; J1885; J2003; J2250; J2405; J2704; J3010; J7030; J7120; J7121